=== PATIENT | male | born 1950 | race Caucasian/White ===

== ENCOUNTER → 2016-11-15 | Outpatient (REF) | payer MEDICARE, BC, OTHER ==
[2016-11-15 13:45] LABS: BASO % 0.6 % (0.0-1.0); EOS % 0.2 % (0.0-3.0); LARGE UNSTAINED CELL # 0.1 K/mm3 (0.0-0.4); LARGE UNSTAINED CELL % 2.3 % (0.0-4.0); LYMPH # 1.1 K/mm3 (1.5-4.5); LYMPH % 20.2 % (24.0-44.0); MEAN CORPUSCULAR HEMOGLOBIN 30.9 pg (27.0-33.0); MEAN CORPUSCULAR HGB CONC 33.9 g/dl (32.0-36.5); MEAN CORPUSCULAR VOLUME 91.2 fl (80.0-96.0); MONO # 0.4 K/mm3 (0.0-0.8); MONO % 8.9 % (0.0-5.0); NEUTROPHILS # 3.4 K/mm3 (1.8-7.7); NEUTROPHILS % 67.8 % (36.0-66.0); PLATELET COUNT, AUTOMATED 164 k/mm3 (150-450); RED CELL DISTRIBUTION WIDTH 13.6 % (11.5-14.5)
[2016-11-15 14:35] LABS: VITAMIN B12 LEVEL 503 PG/ML
[2016-11-15 14:36] LABS: FOLATE 18.5 NG/ML
[2016-11-15 14:41] LABS: ALBUMIN 3.7 GM/DL (3.2-5.2); ALKALINE PHOSPHATASE 89 U/L (45-117); ALT/SGPT 37 U/L (12-78); ANION GAP 10 MEQ/L (8-16); AST/SGOT 18 U/L (15-37); BILIRUBIN,TOTAL 0.3 MG/DL (0.2-1.0); BLOOD UREA NITROGEN 13 MG/DL (7-18); CALCIUM LEVEL 8.7 MG/DL (8.8-10.2); CARBON DIOXIDE LEVEL 29 MEQ/L (21-32); CHLORIDE LEVEL 103 MEQ/L (98-107); CHOLESTEROL LEVEL 138 MG/DL (<200); CREATININE FOR GFR 0.91 MG/DL (0.70-1.30); FREE T4 1.01 NG/DL (0.76-1.46); GLOMERULAR FILTRATION RATE > 60.0 (>49); GLUCOSE, FASTING 110 MG/DL (80-110); POTASSIUM SERUM 4.1 MEQ/L (3.5-5.1); SODIUM LEVEL 142 MEQ/L (136-145); TOTAL PROTEIN 7.4 GM/DL (6.4-8.2); TRIGLYCERIDES LEVEL 382 MG/DL (<150)
== END ==
LOC: M SFHCPLAZ 11:02
PROVIDERS: ATTEND Family Medicine
DX: G40.909 Epilepsy, unspecified, not intractable, without status epilepticus (principal); R40.0 Somnolence; E66.09 Other obesity due to excess calories; G62.9 Polyneuropathy, unspecified; R06.2 Wheezing; R03.0 Elevated blood-pressure reading, without diagnosis of hypertension; Z68.38 Body mass index [BMI] 38.0-38.9, adult; J30.89 Other allergic rhinitis; L40.9 Psoriasis, unspecified; Z79.899 Other long term (current) drug therapy
CPT/HCPCS: 36415; 80053; 80061; 82607; 82746; 83036; 84439; 84443; 85025; 94010; G0463

== ENCOUNTER → 2017-08-06 | Outpatient (CLI) | payer MEDICARE, BC, OTHER ==
[2017-08-06 11:29] LABS: BASO % 0.7 % (0.0-1.0); HEMATOCRIT 42.1 % (42.0-52.0); HEMOGLOBIN 13.9 g/dl (13.5-17.5); IMMATURE GRANULOCYTE % 0.2 % (0-3.0); LYMPH % 22.1 % (24.0-44.0); MEAN CORPUSCULAR HEMOGLOBIN 29.8 pg (27.0-33.0); MEAN CORPUSCULAR VOLUME 90.3 fl (80.0-96.0); MONO # 0.6 10^3/uL (0.0-0.8); MONO % 12.6 % (0.0-5.0); NEUTROPHILS # 2.8 10^3/uL (1.8-7.7); NEUTROPHILS % 64.4 % (36.0-66.0); PLATELET COUNT, AUTOMATED 116 10^3/uL (150-450); RED BLOOD COUNT 4.66 10^6/uL (4.30-6.10); RED CELL DISTRIBUTION WIDTH 12.8 % (11.5-14.5); WHITE BLOOD COUNT 4.4 10^3/uL (4.0-10.0)
[2017-08-06 11:58] LABS: ANION GAP 5 MEQ/L (8-16); BLOOD UREA NITROGEN 18 MG/DL (7-18); CALCIUM LEVEL 8.3 MG/DL (8.8-10.2); CARBON DIOXIDE LEVEL 30 MEQ/L (21-32); CHLORIDE LEVEL 106 MEQ/L (98-107); CREATININE FOR GFR 0.95 MG/DL (0.70-1.30); GLOMERULAR FILTRATION RATE > 60.0 (>49); GLUCOSE, FASTING 114 MG/DL (70-100); POTASSIUM SERUM 4.6 MEQ/L (3.5-5.1); SODIUM LEVEL 141 MEQ/L (136-145)
[2017-08-06 22:03] LABS: ESTIMATED AVERAGE GLUCOSE 114 MG/DL (60-110); HEMOGLOBIN A1c 5.6 %
== END ==
LOC: M LAB 10:36
DX: I10 Essential (primary) hypertension (principal); R73.03 Prediabetes; R00.0 Tachycardia, unspecified
CPT/HCPCS: 83036

== ENCOUNTER 2017-09-05 11:25 | Inpatient (IN) | payer MEDICARE, BC, OTHER ==
[2017-09-05] MEDS: ACETAMINOPHEN TAB 650MG DOSE (2X325MG) PO (11:58)
[2017-09-05 12:23] LABS: ALBUMIN 2.9 GM/DL (3.2-5.2); ALBUMIN/GLOBULIN RATIO 0.73 (1.00-1.93); ALKALINE PHOSPHATASE 85 U/L (45-117); ALT/SGPT 105 U/L (12-78); ANION GAP 8 MEQ/L (8-16); AST/SGOT 47 U/L (7-37); BILIRUBIN,DIRECT 0.2 MG/DL (0.0-0.2); BILIRUBIN,TOTAL 0.6 MG/DL (0.2-1.0); BLOOD UREA NITROGEN 19 MG/DL (7-18); CALCIUM LEVEL 7.9 MG/DL (8.8-10.2); CARBON DIOXIDE LEVEL 25 MEQ/L (21-32); CHLORIDE LEVEL 104 MEQ/L (98-107); CPK CREATINE PHOSPHOKINASE 112 U/L (39-308); CREATININE FOR GFR 1.18 MG/DL (0.70-1.30); GLOMERULAR FILTRATION RATE > 60.0 (>49); GLUCOSE, FASTING 198 MG/DL (70-100); LIPASE 206 U/L (73-393); POTASSIUM SERUM 5.1 MEQ/L (3.5-5.1); SODIUM LEVEL 137 MEQ/L (136-145); TOTAL PROTEIN 6.9 GM/DL (6.4-8.2); TROPONIN I 0.02 NG/ML (< 0.10)
[2017-09-05 12:28] LABS: MB/CK RELATIVE INDEX 1.78 (< OR =4); THYROID STIMULATING HORMONE 0.764 uIU/ML (0.358-3.740)
[2017-09-05 12:33] LABS: LACTIC ACID SEPSIS PROTOCOL 2.8 MMOL/L (0.4-2.0)
[2017-09-05 12:47] LABS: BASO % 0.2 % (0.0-1.0); HEMATOCRIT 35.3 % (42.0-52.0); HEMOGLOBIN 12.1 g/dl (13.5-17.5); IMMATURE GRANULOCYTE % 0.6 % (0-3.0); LYMPH # 0.4 10^3/uL (1.5-4.5); LYMPH % 3.3 % (24.0-44.0); MEAN CORPUSCULAR HEMOGLOBIN 31.4 pg (27.0-33.0); MEAN CORPUSCULAR HGB CONC 34.3 g/dl (32.0-36.5); MEAN CORPUSCULAR VOLUME 91.7 fl (80.0-96.0); MONO % 7.6 % (0.0-5.0); NEUTROPHILS # 11.7 10^3/uL (1.8-7.7); NEUTROPHILS % 88.3 % (36.0-66.0); PLATELET COUNT, AUTOMATED 165 10^3/uL (150-450); RED BLOOD COUNT 3.85 10^6/uL (4.30-6.10); WHITE BLOOD COUNT 13.2 10^3/uL (4.0-10.0)
[2017-09-05] MEDS: NS IV (13:53)
[2017-09-05] MEDS: DILUENT IV (13:53)
[2017-09-05] MEDS: CEFEPIME HCL 2 GM in D5W MINI-BAG PLUS 50 ML IV (13:54)
[2017-09-05] MEDS ORDERED: ISOVUE-370 76% 100ML VIAL (Q9967) As Ordered (13:55)
[2017-09-05 15:36] LABS: KETONE, URINE AUTO RFX NEGATIVE (NEGATIVE); MUCUS, URINE RFX SMALL (NEGATIVE); RBC, URINE AUTO RFX 3 /HPF (0-3); SPECIFIC GRAVITY UR AUTO RFX 1.036 (1.002-1.035); SQUAM EPITHELIAL CELL UR AURFX 0 /HPF (0-6)
[2017-09-05 15:43] LABS: PHENYTOIN (DILANTIN) 3.3 UG/ML (10.0-20.0)
[2017-09-05 15:48] LABS: LEUKOCYTE ESTERASE UR AUTO RFX TRACE (NEGATIVE); NITRITE, URINE AUTO RFX POSITIVE (NEGATIVE); WBC, URINE AUTO RFX 12 /HPF (0-3)
[2017-09-05] MEDS: PHENYTOIN ER 100 MG CAP PO ×2 (16:00→21:30)
[2017-09-05] MEDS ORDERED: ONDANSETRON 4MG/2ML VIAL (J2405) IV (16:00)
[2017-09-05 16:02] LABS: INFLUENZA A AMPLIFICATION NEGATIVE (NEGATIVE); INFLUENZA B AMPLIFICATION NEGATIVE (NEGATIVE)
[2017-09-05 16:17] LABS: MAGNESIUM LEVEL 1.5 MG/DL (1.8-2.4)
[2017-09-05] MEDS: NS 1,000 ML IV (16:30)
[2017-09-05] MEDS: SODIUM CHLORIDE 0.9% 1000 ML IV (17:00)
[2017-09-05 17:27] LABS: HIV SCREEN CENTAUR SOURCE NEGATIVE (NEGATIVE)
[2017-09-05] MEDS: ACETAMINOPHEN 325 MG TAB PO (21:31)
[2017-09-05] MEDS: cefTRIAXone SOD 1 GM in D5W MINI-BAG PLUS 50 ML IV (22:14)
[2017-09-06] MEDS: NS 1,000 ML IV ×4 (00:17→22:15)
[2017-09-06] MEDS ORDERED: CEFEPIME HCL 2 GM in D5W MINI-BAG PLUS 50 ML IV (02:00)
[2017-09-06] MEDS: ACETAMINOPHEN 325 MG TAB PO (04:09)
[2017-09-06] MEDS ORDERED: METAL LOCK LOOP XX (05:36)
[2017-09-06 07:15] LABS: BASO % 0.2 % (0.0-1.0); HEMATOCRIT 31.3 % (42.0-52.0); HEMOGLOBIN 10.5 g/dl (13.5-17.5); IMMATURE GRANULOCYTE % 0.5 % (0-3.0); LYMPH # 0.6 10^3/uL (1.5-4.5); LYMPH % 6.2 % (24.0-44.0); MEAN CORPUSCULAR HEMOGLOBIN 30.6 pg (27.0-33.0); MEAN CORPUSCULAR VOLUME 91.3 fl (80.0-96.0); MONO # 0.9 10^3/uL (0.0-0.8); MONO % 9.1 % (0.0-5.0); NEUTROPHILS # 8.6 10^3/uL (1.8-7.7); PLATELET COUNT, AUTOMATED 144 10^3/uL (150-450); RED BLOOD COUNT 3.43 10^6/uL (4.30-6.10); WHITE BLOOD COUNT 10.3 10^3/uL (4.0-10.0)
[2017-09-06 07:16] LABS: MEAN CORPUSCULAR HGB CONC 33.5 g/dl (32.0-36.5)
[2017-09-06 07:20] LABS: ALBUMIN 2.5 GM/DL (3.2-5.2); ALBUMIN/GLOBULIN RATIO 0.63 (1.00-1.93); ALKALINE PHOSPHATASE 72 U/L (45-117); ALT/SGPT 69 U/L (12-78); ANION GAP 7 MEQ/L (8-16); AST/SGOT 29 U/L (7-37); BILIRUBIN,TOTAL 0.4 MG/DL (0.2-1.0); BLOOD UREA NITROGEN 14 MG/DL (7-18); CALCIUM LEVEL 7.6 MG/DL (8.8-10.2); CARBON DIOXIDE LEVEL 26 MEQ/L (21-32); CHLORIDE LEVEL 107 MEQ/L (98-107); GLOMERULAR FILTRATION RATE > 60.0 (>49); GLUCOSE, FASTING 131 MG/DL (70-100); POTASSIUM SERUM 3.7 MEQ/L (3.5-5.1); SODIUM LEVEL 140 MEQ/L (136-145); TOTAL PROTEIN 6.5 GM/DL (6.4-8.2)
[2017-09-06] MEDS: PANTOPRAZOLE 40MG TAB (PROTONIX) PO (07:54)
[2017-09-06] MEDS: PHENYTOIN ER 100 MG CAP PO ×3 (07:54→22:22)
[2017-09-06] MEDS: ENOXAPARIN 40 MG/0.4 ML SYRINGE (J1650) SC (07:55)
[2017-09-06] MEDS ORDERED: PROHANCE 279.3MG/ML 5ML VIAL (A9576) As Ordered (11:38)
[2017-09-06] MEDS ORDERED: PROHANCE 279.3MG/ML 15ML VIAL (A9576) As Ordered (11:38)
[2017-09-06] MEDS: cefTRIAXone SOD 1 GM in D5W MINI-BAG PLUS 50 ML IV (22:23)
[2017-09-07] MEDS: NS 1,000 ML IV (04:07)
[2017-09-07 06:41] LABS: ALBUMIN 2.6 GM/DL (3.2-5.2); ALKALINE PHOSPHATASE 75 U/L (45-117); ALT/SGPT 85 U/L (12-78); ANION GAP 7 MEQ/L (8-16); AST/SGOT 44 U/L (7-37); BILIRUBIN,TOTAL 0.3 MG/DL (0.2-1.0); BLOOD UREA NITROGEN 11 MG/DL (7-18); CALCIUM LEVEL 7.9 MG/DL (8.8-10.2); CARBON DIOXIDE LEVEL 27 MEQ/L (21-32); CHLORIDE LEVEL 108 MEQ/L (98-107); CREATININE FOR GFR 0.81 MG/DL (0.70-1.30); GLOMERULAR FILTRATION RATE > 60.0 (>49); GLUCOSE, FASTING 113 MG/DL (70-100); POTASSIUM SERUM 3.8 MEQ/L (3.5-5.1); SODIUM LEVEL 142 MEQ/L (136-145); TOTAL PROTEIN 6.9 GM/DL (6.4-8.2)
[2017-09-07 09:44] LABS: BASO % 0.2 % (0.0-1.0); HEMATOCRIT 35.4 % (42.0-52.0); IMMATURE GRANULOCYTE % 0.4 % (0-3.0); LYMPH # 0.7 10^3/uL (1.5-4.5); MEAN CORPUSCULAR HEMOGLOBIN 31.8 pg (27.0-33.0); MEAN CORPUSCULAR HGB CONC 33.9 g/dl (32.0-36.5); MEAN CORPUSCULAR VOLUME 93.9 fl (80.0-96.0); MONO # 0.7 10^3/uL (0.0-0.8); MONO % 7.8 % (0.0-5.0); NEUTROPHILS # 7.1 10^3/uL (1.8-7.7); NEUTROPHILS % 83.6 % (36.0-66.0); PLATELET COUNT, AUTOMATED 155 10^3/uL (150-450); RED BLOOD COUNT 3.77 10^6/uL (4.30-6.10); RED CELL DISTRIBUTION WIDTH 13.1 % (11.5-14.5); WHITE BLOOD COUNT 8.5 10^3/uL (4.0-10.0)
[2017-09-07] MEDS: ENOXAPARIN 40 MG/0.4 ML SYRINGE (J1650) SC (09:49)
[2017-09-07] MEDS: PANTOPRAZOLE 40MG TAB (PROTONIX) PO (09:49)
[2017-09-07] MEDS: PREVNAR 13 VACCINE SYRINGE (CPT CODE:90670) IM (09:49)
[2017-09-07] MEDS: PHENYTOIN ER 100 MG CAP PO ×3 (09:50→20:38)
[2017-09-07 10:35] LABS: HEPATITIS B SURFACE ANTIGEN NEGATIVE (NEGATIVE)
[2017-09-08 06:39] LABS: ALBUMIN 2.7 GM/DL (3.2-5.2); ALKALINE PHOSPHATASE 84 U/L (45-117); ALT/SGPT 103 U/L (12-78); ANION GAP 6 MEQ/L (8-16); AST/SGOT 53 U/L (7-37); BILIRUBIN,TOTAL 0.3 MG/DL (0.2-1.0); BLOOD UREA NITROGEN 12 MG/DL (7-18); CALCIUM LEVEL 8.2 MG/DL (8.8-10.2); CARBON DIOXIDE LEVEL 27 MEQ/L (21-32); CHLORIDE LEVEL 110 MEQ/L (98-107); CREATININE FOR GFR 0.83 MG/DL (0.70-1.30); GLOMERULAR FILTRATION RATE > 60.0 (>49); GLUCOSE, FASTING 135 MG/DL (70-100); SODIUM LEVEL 143 MEQ/L (136-145); TOTAL PROTEIN 7.2 GM/DL (6.4-8.2)
[2017-09-08 06:53] LABS: BASO % 0.1 % (0.0-1.0); HEMATOCRIT 33.1 % (42.0-52.0); HEMOGLOBIN 11.1 g/dl (13.5-17.5); IMMATURE GRANULOCYTE % 0.4 % (0-3.0); LYMPH # 0.7 10^3/uL (1.5-4.5); LYMPH % 10.5 % (24.0-44.0); MEAN CORPUSCULAR HEMOGLOBIN 30.7 pg (27.0-33.0); MEAN CORPUSCULAR HGB CONC 33.5 g/dl (32.0-36.5); MEAN CORPUSCULAR VOLUME 91.4 fl (80.0-96.0); MONO # 0.6 10^3/uL (0.0-0.8); MONO % 8.8 % (0.0-5.0); NEUTROPHILS # 5.5 10^3/uL (1.8-7.7); NEUTROPHILS % 80.2 % (36.0-66.0); PLATELET COUNT, AUTOMATED 161 10^3/uL (150-450); RED BLOOD COUNT 3.62 10^6/uL (4.30-6.10); RED CELL DISTRIBUTION WIDTH 12.9 % (11.5-14.5); WHITE BLOOD COUNT 6.8 10^3/uL (4.0-10.0)
[2017-09-08] MEDS: PANTOPRAZOLE 40MG TAB (PROTONIX) PO (09:33)
[2017-09-08] MEDS: ENOXAPARIN 40 MG/0.4 ML SYRINGE (J1650) SC (09:33)
[2017-09-08] MEDS: PHENYTOIN ER 100 MG CAP PO (09:33)
== END 2017-09-08 10:31 | disposition home or self-care (01) | DRG 872 ==
LOC: M MSPAV 09-06 14:52 → M ED 11:25 → M ED INP 16:04
DX: A41.89 Other specified sepsis (principal); E87.2 Acidosis; I10 Essential (primary) hypertension; R65.20 Severe sepsis without septic shock; R73.03 Prediabetes; G40.909 Epilepsy, unspecified, not intractable, without status epilepticus; B97.89 Other viral agents as the cause of diseases classified elsewhere; K21.9 Gastro-esophageal reflux disease without esophagitis; E66.9 Obesity, unspecified; R11.2 Nausea with vomiting, unspecified; E86.0 Dehydration; M35.01 Sjogren syndrome with keratoconjunctivitis; L40.0 Psoriasis vulgaris; Z79.899 Other long term (current) drug therapy; Z87.891 Personal history of nicotine dependence; Z68.36 Body mass index [BMI] 36.0-36.9, adult

== ENCOUNTER → 2017-11-07 | Outpatient (CLI) | payer MEDICARE, BC, OTHER ==
[2017-11-07 10:39] LABS: ALBUMIN 3.5 GM/DL (3.2-5.2); ALBUMIN/GLOBULIN RATIO 0.92 (1.00-1.93); ALKALINE PHOSPHATASE 97 U/L (45-117); ALT/SGPT 28 U/L (12-78); AST/SGOT 18 U/L (7-37); BILIRUBIN,DIRECT 0.1 MG/DL (0.0-0.2); BILIRUBIN,TOTAL 0.4 MG/DL (0.2-1.0); PREALBUMIN 34.8 MG/DL (20.0-40.0); TOTAL PROTEIN 7.3 GM/DL (6.4-8.2)
[2017-11-07 10:50] LABS: PROTHROMBIN TIME 14.3 SECONDS (12.1-14.4)
== END ==
LOC: M LAB 09:50
DX: E88.09 Other disorders of plasma-protein metabolism, not elsewhere classified (principal)
CPT/HCPCS: 80076

== ENCOUNTER → 2017-12-07 | Outpatient (CLI) | payer MEDICARE, BC, OTHER ==
[2017-12-07 12:18] LABS: VITAMIN B12 LEVEL 304 PG/ML (247-911)
[2017-12-07 14:50] LABS: ESTIMATED AVERAGE GLUCOSE 128 MG/DL (60-110); HEMOGLOBIN A1c 6.1 %
[2017-12-07 21:15] LABS: ANION GAP 8 MEQ/L (8-16); BLOOD UREA NITROGEN 18 MG/DL (7-18); CALCIUM LEVEL 8.4 MG/DL (8.8-10.2); CARBON DIOXIDE LEVEL 28 MEQ/L (21-32); CHLORIDE LEVEL 106 MEQ/L (98-107); CHOLESTEROL LEVEL 115 MG/DL (<200); CHOLESTEROL RISK RATIO 3.194 (<5); CREATININE FOR GFR 0.99 MG/DL (0.70-1.30); FREE T4 0.82 NG/DL (0.76-1.46); GLOMERULAR FILTRATION RATE > 60.0 (>49); GLUCOSE, FASTING 132 MG/DL (70-100); HDL CHOLESTEROL 36 MG/DL (>40); LDL CHOLESTEROL 29.4 MG/DL (<100); NON-HDL-C 79 MG/DL; NT-PRO BNP 41 PG/ML (<125); POTASSIUM SERUM 4.4 MEQ/L (3.5-5.1); SODIUM LEVEL 142 MEQ/L (136-145); TRIGLYCERIDES LEVEL 248 MG/DL (<150)
== END ==
LOC: M SMT 09:36
DX: R00.0 Tachycardia, unspecified (principal); G62.9 Polyneuropathy, unspecified; Z13.1 Encounter for screening for diabetes mellitus; Z13.220 Encounter for screening for lipoid disorders; I10 Essential (primary) hypertension; Z79.899 Other long term (current) drug therapy
CPT/HCPCS: 84443

== ENCOUNTER 2018-06-12 08:23 | Day surgery (SDC) | payer MEDICARE, BC, OTHER ==
[~2018-06-12] VITALS: Ht 182.9 cm; Wt 134.3 kg
[~2018-06-12 08:23] MED LIST: ACETAMINOPHEN 325 MG TAB PO PRN; BSS with VANC/TOB/EPI for EYE CASES IR ONE; CELE1CAP9 PO; CYCLOPENTOLATE 2% OPHTH SOLN 2ML BTL OD ONE; HEALON DUET PRO(HEALON 10MG/ML 0.55ML & HEALON ENDOCOAT 30MG/ML 0.85ML) As Ordered ONE; LIDOCAINE 1% SDV 5 ML VIAL As Ordered ONE; LIDOCAINE 3.5 % 1ML OPHTH TOPICAL GEL OU ONE; LOSA50TA88 PO; MIDAZOLAM INJ 2 MG/2 ML VIAL (J2250) As Ordered ONE; MOXIFLOXACIN IN BSS 0.25MG/0.25ML INTRACAMERAL INJ (OR EYE ONLY)(J2280) As Ordered ONE; OFLOXACIN 0.3 % (OCUFLOX) OPTH SOL 5ML OD ONE; PANT40TA3 PO; PHEN-491 PO; PHEN100C PO; PHENYLEPHRINE 2.5% OPHTH SOL 2ML OD ONE; PHENYLEPHRINE HCL 10 % OPHTH. SOL 5ML OD PRN; POVIDONE-IODINE 5% OPHTH PREP SOL 30ML As Ordered ONE; PROAAER10 INH; TRIAMCINOLONE PRES FR 40 MG/ML 1ML(TRIESENCE)(OR EYE ONLY)(J3300 PER 1MG) As Ordered ONE; TROPICAMIDE 1% OPHTH SOLN 2ML OD ONE; TYLE325T5 PO; [UNRECOGNIZED DRUG - OTHER] TOP; fentaNYL 100 MCG/2 ML INJECTION (J3010) As Ordered ONE
[2018-06-12] MEDS ORDERED: PROPOFOL 200 MG/20 ML VIAL As Ordered ONE (11:28)
[2018-06-12] MEDS ORDERED: TRYPAN BLUE 0.06 % 2.25 ML OPHTH SYR (VISIONBLUE) As Ordered ONE ×2 (11:30→11:33)
[2018-06-12] MEDS ORDERED: AcetaZOLAMIDE 500 MG ER CAP PO ONE (12:15)
[2018-06-12] MEDS ORDERED: TRIMETHOBENZAMIDE 300 MG CAP PO PRN (12:15)
[2018-06-12 12:25] VITALS: BP 121/75
== END 2018-06-12 12:43 | disposition home or self-care (01) ==
LOC: M SDC 08:23
PROVIDERS: ATTEND Ophthalmology
DX: H26.9 Unspecified cataract (principal); I10 Essential (primary) hypertension; K21.9 Gastro-esophageal reflux disease without esophagitis; R06.02 Shortness of breath; L40.9 Psoriasis, unspecified; R56.9 Unspecified convulsions; N40.0 Benign prostatic hyperplasia without lower urinary tract symptoms; M15.0 Primary generalized (osteo)arthritis; Z79.899 Other long term (current) drug therapy; Z87.891 Personal history of nicotine dependence; Z98.42 Cataract extraction status, left eye
CPT/HCPCS: 66984; J2250; J2280; J3010; J3300; V2632

== ENCOUNTER → 2018-09-30 | Outpatient (CLI) | payer MEDICARE, BC, OTHER ==
[~2018-09-30] MED LIST changes: -ACETAMINOPHEN 325 MG TAB PO PRN; -BSS with VANC/TOB/EPI for EYE CASES IR ONE; -CYCLOPENTOLATE 2% OPHTH SOLN 2ML BTL OD ONE; -HEALON DUET PRO(HEALON 10MG/ML 0.55ML & HEALON ENDOCOAT 30MG/ML 0.85ML) As Ordered ONE; -LIDOCAINE 1% SDV 5 ML VIAL As Ordered ONE; -LIDOCAINE 3.5 % 1ML OPHTH TOPICAL GEL OU ONE; -MIDAZOLAM INJ 2 MG/2 ML VIAL (J2250) As Ordered ONE; -MOXIFLOXACIN IN BSS 0.25MG/0.25ML INTRACAMERAL INJ (OR EYE ONLY)(J2280) As Ordered ONE; -OFLOXACIN 0.3 % (OCUFLOX) OPTH SOL 5ML OD ONE; -PHENYLEPHRINE 2.5% OPHTH SOL 2ML OD ONE; -PHENYLEPHRINE HCL 10 % OPHTH. SOL 5ML OD PRN; -POVIDONE-IODINE 5% OPHTH PREP SOL 30ML As Ordered ONE; -TRIAMCINOLONE PRES FR 40 MG/ML 1ML(TRIESENCE)(OR EYE ONLY)(J3300 PER 1MG) As Ordered ONE; -TROPICAMIDE 1% OPHTH SOLN 2ML OD ONE; -fentaNYL 100 MCG/2 ML INJECTION (J3010) As Ordered ONE
[2018-09-30 11:32] LABS: HEMOGLOBIN A1c 6.4 %
[2018-09-30 11:53] LABS: BLOOD UREA NITROGEN 20 MG/DL (7-18); CARBON DIOXIDE LEVEL 30 MEQ/L (21-32); CHLORIDE LEVEL 106 MEQ/L (98-107); GLOMERULAR FILTRATION RATE > 60.0 (>42); GLUCOSE, FASTING 119 MG/DL (70-100); POTASSIUM SERUM 4.4 MEQ/L (3.5-5.1); SODIUM LEVEL 142 MEQ/L (136-145)
[2018-09-30 11:54] LABS: VITAMIN B12 LEVEL 281 PG/ML (247-911)
== END ==
LOC: M LAB 09:52
PROVIDERS: ATTEND Family Medicine
DX: E11.9 Type 2 diabetes mellitus without complications (principal); G62.9 Polyneuropathy, unspecified

== ENCOUNTER → 2018-10-01 | Outpatient (REF) | payer MEDICARE, OTHER ==
[2018-10-01 14:06] LABS: MALB URINE SIEMENS 53.2 MG/L; MAU/CREAT RATIO 34.1 MCG/MG (0.0-30.0)
== END ==
LOC: M SFHCPLAZ 12:39
PROVIDERS: ATTEND Family Medicine
DX: E11.9 Type 2 diabetes mellitus without complications (principal); G62.9 Polyneuropathy, unspecified

== ENCOUNTER 2018-11-19 13:54 | Inpatient (IN) | payer MEDICARE, OTHER ==
[~2018-11-19] VITALS: Ht 182.9 cm; Wt 126.5 kg
[~2018-11-19 13:54] MED LIST changes: -ACET1TAB55 PO; -BAYE325T12 PO; -METF500T13 PO; -OMEG10002 PO; -PHEN16.2 PO; -PRAV10TA4 PO; -fish oil
[2018-11-19] MEDS ORDERED: PRAV10TA4 PO (14:03)
[2018-11-19] MEDS ORDERED: METF500T13 PO (14:03)
[2018-11-19] MEDS ORDERED: fish oil (14:04)
[2018-11-19] MEDS ORDERED: NS 1,000 ML IV SCH (14:22)
[2018-11-19] MEDS ORDERED: methylPREDNISolone INJ 125 MG/2 ML VIAL (J2930) IV ONE (14:30)
[2018-11-19] MEDS: IPRATROPIUM 0.5MG/ALBUTEROL 2.5MG INH SOL UD 3ML (DUONEB)(J7620) NEB PRN ×3 (14:34→15:05)
[2018-11-19 14:36] LABS: BASO % 0.3 % (0.0-1.0); HEMATOCRIT 42.4 % (42.0-52.0); HEMOGLOBIN 13.8 g/dl (13.5-17.5); LYMPH # 0.7 10^3/uL (1.5-4.5); LYMPH % 9.8 % (24.0-44.0); MEAN CORPUSCULAR HEMOGLOBIN 31.1 pg (27.0-33.0); MEAN CORPUSCULAR HGB CONC 32.5 g/dl (32.0-36.5); MEAN CORPUSCULAR VOLUME 95.5 fl (80.0-96.0); MONO # 0.8 10^3/uL (0.0-0.8); MONO % 11.8 % (0.0-5.0); NEUTROPHILS # 5.2 10^3/uL (1.8-7.7); NEUTROPHILS % 77.8 % (36.0-66.0); PLATELET COUNT, AUTOMATED 134 10^3/uL (150-450); RED BLOOD COUNT 4.44 10^6/uL (4.30-6.10); WHITE BLOOD COUNT 6.7 10^3/uL (4.0-10.0)
[2018-11-19 15:04] LABS: ALBUMIN 3.5 GM/DL (3.2-5.2); ALT/SGPT 69 U/L (12-78); BILIRUBIN,DIRECT 0.3 MG/DL (0.0-0.2); BILIRUBIN,TOTAL 0.5 MG/DL (0.2-1.0); BLOOD UREA NITROGEN 16 MG/DL (7-18); CALCIUM LEVEL 8.4 MG/DL (8.8-10.2); CARBON DIOXIDE LEVEL 30 MEQ/L (21-32); CHLORIDE LEVEL 104 MEQ/L (98-107); CK-MB VALUE MASS 4.3 NG/ML (<3.6); CPK CREATINE PHOSPHOKINASE 187 U/L (39-308); CREATININE FOR GFR 1.04 MG/DL (0.70-1.30); GLOMERULAR FILTRATION RATE > 60.0 (>42); GLUCOSE, FASTING 132 MG/DL (70-100); NT-PRO BNP 75 PG/ML (<125); POTASSIUM SERUM 4.3 MEQ/L (3.5-5.1); SODIUM LEVEL 140 MEQ/L (136-145); TOTAL PROTEIN 7.7 GM/DL (6.4-8.2); TROPONIN I < 0.02 NG/ML (< 0.10)
[2018-11-19 15:32] LABS: VENOUS BASE EXCESS 1.6 (-2.0-2.0); VENOUS HCO3 28.1 MEQ/L (23.0-27.0); VENOUS O2 SATURATION 80.1 % (60.0-80.0); VENOUS PARTIAL PRESSURE CO2 51.7 mmHg (38.0-50.0); VENOUS PARTIAL PRESSURE O2 45.5 mmHg (30.0-50.0); VENOUS PH 7.353 UNITS (7.330-7.430); VENOUS STANDARD HCO3 25.4 MEQ/L; VENOUS TOTAL CO2 29.7 MEQ/L (24.0-28.0)
[2018-11-19] MEDS ORDERED: ISOVUE-370 76% 100ML VIAL (Q9967) As Ordered ONE (15:59)
[2018-11-19] MEDS ORDERED: IPRATROPIUM 0.5MG/ALBUTEROL 2.5MG INH SOL UD 3ML (DUONEB)(J7620) NEB ONE (16:30)
[2018-11-19] MEDS ORDERED: AZITHROMYCIN INJ 500 MG, VIAL MATE ADAPTER 1 EACH in D5W 250 ML IV ONE (17:15)
[2018-11-19] MEDS ORDERED: cefTRIAXone SOD 1 GM in D5W MINI-BAG PLUS 50 ML IV ONE (17:15)
--- NOTE | 2018-11-19 17:30 | REP ---
CHEST, TWO VIEWS: Two views of the chest are performed. COMPARISON: 09/05/2017. There is mild chronic interstitial prominence. There is no acute infiltrate. The heart is not significantly enlarged. There is some mild calcification of the thoracic aorta. The mediastinal silhouette is unchanged. There are mild degenerative changes of the spine. IMPRESSION: Mild chronic changes without evidence of acute infiltrate. Electronically Signed by Walt White MD 11/20/2018 10:55 A
[2018-11-19] MEDS ORDERED: PHEN16.2 PO (17:57)
[2018-11-19] MEDS ORDERED: OMEG10002 PO (17:57)
[2018-11-19] MEDS ORDERED: ACET1TAB55 PO (17:59)
[2018-11-19] MEDS ORDERED: BAYE325T12 PO (17:59)
[2018-11-19] MEDS ORDERED: GLUCOSE 4 GM CHEW TABLET PO PRN (18:30)
[2018-11-19] MEDS ORDERED: DEXTROSE 50% 50 ML SYRINGE IV PRN (18:30)
[2018-11-19] MEDS ORDERED: GLUCAGON FOR INJ 1 MG VIAL (J1610) SC PRN (18:30)
--- NOTE | 2018-11-19 19:12 | REP ---
CT ANGIOGRAM CHEST: TECHNIQUE: Axial contrast enhanced images from the thoracic inlet to the upper abdomen using 100 mL Isovue 370 intravenous contrast material with multiplanar reformations. There is no CT evidence of pulmonary embolism. There is no thoracic aortic aneurysm or dissection. Heart is normal in size. There is no pleural or pericardial effusion. There is no evidence of significant mediastinal, hilar, or chest wall lymphadenopathy. There is diffuse bronchiolar wall thickening bilaterally compatible with airway inflammation. Diffuse interstitial infiltrate is seen throughout the left lung. No consolidation is seen. There are degenerative changes of the spine. Cysts are seen in the liver. Spleen appears somewhat enlarged. IMPRESSION: No CT evidence of pulmonary embolism. Diffuse bronchiolar wall thickening compatible with airway inflammation. Diffuse interstitial infiltrate left lung. Electronically Signed by Walt White MD 11/20/2018 10:57 A
[2018-11-19] MEDS ORDERED: PILL CUTTER 1 EACH XX PRN (19:15)
--- NOTE | 2018-11-19 20:01 | ECGEPIP ---
[facility] - ED Test Date: 2018-11-19 Pat Name: AIDEN MEHTA Department: Room: - Gender: Male [employer]: ANA MARIA : 1950 Requested By: ISSA WOODARD Order Number: [id number] Reading MD: Darrell Ferguson Measurements Intervals [place] Rate: 112 P: 56 WV: 151 QRS: 41 QRSD: 76 T: 66 QT: 309 QTc: 423 Interpretive Statements SINUS TACHYCARDIA SIMILAR TO 09/05/17 Electronically Signed on 11-19-2018 20:01:31 EDT by Darrell Ferguson
--- NOTE | 2018-11-19 20:09 | HPEPDOC ---
[facility] Medical History & Physical Date of Admission Nov 19, 2018 Date of Service: Nov 19, 2018 Primary Care Physician: RIGOBERTO BURNS MD Attending Physician: AJAY VALDOVINOS MD History and Physical CHIEF COMPLAINT: Shortness of breath, cough HISTORY OF PRESENT ILLNESS: Enrique Thapa is a 68-year-old male with past medical history of hypertension, diabetes mellitus, seizure disorder, GERD, obesity, Keratoconjunctivitis sicca, plaque psoriasis who presents to the emergency room today with a two-week history of productive cough and progressive shortness of breath. He states that his symptoms started about 2 weeks ago when he felt like he had a cold with runny nose, coughing, sinus headaches. He states his symptoms progressively worsened and his cough became more persistent and productive of sputum that was initially white and has become a brown color. He also states he has become increasingly short of breath. He also admits to decreased appetite over the past 4 days and increased swelling in his legs which has been present and stable over the past few months. He states he did take Tylenol for the headache last night which helped somewhat. He states that over the past few days he has been feeling more fatigued and becoming more short of breath while he is up walking around, trying to do his normal daily routine. He denies any fevers, chills or night sweats. He states he went to urgent care today because his was concerned that his condition was continuing to worsen. PAST MEDICAL HISTORY: 1. Hypertension. 2. Diabetes mellitus. 3. Seizure disorder. 4. GERD. 5. Obesity. 6. Keratoconjunctivitis sicca. 7. Plaque psoriasis PAST SURGICAL HISTORY: 1. Appendectomy 2. 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 Quit 18 years ago ETOH: Denies Illicit drug use: Denies IV drug use: Denies FAMILY HISTORY: Father: at 51 years, pancreatic cancer Mother: at 72 years, cancer ALLERGIES: Please see below. REVIEW OF SYSTEMS: CONSTITUTIONAL: Denies fevers, chills, night sweats, unexpected change in weight. HEENT: Admits to headaches and rhinorrhea. Denies change in vision, change in h earing, ear pain, sore throat, dysphagia. CARDIOVASCULAR: This is shortness of breath and leg swelling. Denies chest pain, palpitations, lightheadedness. RESPIRATORY: Admits to productive cough, dyspnea, wheezing. Denies coughing up blood. GASTROINTESTINAL: Denies nausea/vomiting, abdominal pain, diarrhea, constipation. GENITOURINARY: Denies dysuria, urinary frequency. SKIN: Admits to multiple lesions of psoriasis skin. Denies any changes or new lesions. MUSCULOSKELETAL: Denies joint pains, muscle aches. NEUROLOGICAL: Denies confusion, weakness, change in mental status. PSYCHIATRIC: Denies change in mood or affect. HOME MEDICATIONS: Please see below. PHYSICAL EXAMINATION: VITAL SIGNS: Temperature 99.5, pulse 124, respiratory rate, 22, blood pressure 141/64, pulse oximetry 89 % on 4 L nasal cannula. GENERAL APPEARANCE: Patient appears comfortable lying in bed. Mild respiratory distress without accessory muscle use for breathing HEENT: PERRLA, EOMI, moist mucous membranes. . Ear canals clear with pearly TMs bilaterally without fluid.. No lesions in the mouth, pharynx normal. Mallampati score of 2-3 CARDIOVASCULAR: Rate tachycardic, normal rhythm, normal S1 and normal S2, no murmurs, rubs or gallops. LUNGS: Decreased lung sounds on the left side compared to the right, crackles in bilateral bases, diffuse expiratory wheezing bilaterally. ABDOMEN: Soft, nontender, distended. Bowel sounds present. Umbilical hernia present and reducible. MUSCULOSKELETAL: Full range of motion and strength 5/5 in all 4 extremities. EXTREMITIES: Pulses 2+/4 and radial and posterior tibial arteries. Mild nonpitting edema in bilateral lower extremities. NEUROLOGICAL: Alert and oriented 3 to person, place, time. Cranial nerves III - XII grossly intact. No focal deficits. PSYCHIATRIC: Mood and affect normal. LABORATORY DATA: See below. IMAGING: CXR 11/19: Mild chronic changes without evidence of acute infiltrate. CTA 11/19: No CT evidence of pulmonary embolism. Diffuse bronchiolar wall thicken ing compatible with airway inflammation. Diffuse interstitial infiltrate left lung. EKG: sinus tachycardia MICROBIOLOGY: Please see below. ASSESSMENT: Enrique Thapa is a 68-year-old male with past medical history of hypertension, diabetes mellitus, seizure disorder, GERD, obesity, Keratoconjunctivitis sicca, plaque psoriasis who presents to the emergency room today with a two-week history of productive cough and progressive shortness of breath , who presents with tachycardia requiring 4 L oxygen nasal cannula to maintain oxygen saturations around 90%, admitted for acute respiratory hypoxia, likely due to pneumonia. PLAN: 1. Acute respiratory hypoxia, likely secondary to pneumonia - Unsure if atypical versus bacterial - White blood cell count was normal at 6.7, lactic acid was normal at 1.2, will check pro-calcitonin - CXR did not show acute pulmonary process. CTA did show diffuse left lung infiltrates. Will check high resolution CT for better visualization of likely pneumonia - Blood cultures 2 pending. We'll obtain sputum sample for culture. Will check urine for Legionella antigen and strep pneumo antigen. - Patient has a history of multiple rheumatological issues including his plaque psoriasis and Keratoconjunctivitis sicca, in addition to the finding of diffuse bronchial thickening on the CTA, will check an SARAH and anti-CCP levels for possible rheumatologic pulmonary process. -Ordered Mucinex, chest PT, Acapella to help break up mucus. Inspiratory spirometry to help with lung expansion Will start Solu-Medrol 60 mg every 6 hours Continue with IV azithromycin (day #1) and IV ceftriaxone (day #1) 2. Rule out PE - Patient presented with symptoms concerning for PE - D-dimer was elevated at 2529.3 - CTA was negative for pulmonary embolism, making this diagnosis unlikely 3. History of smoking - No official COPD diagnosis. He does have an albuterol inhaler at home for shortness of breath - He does have diffuse wheezing suggestive of possible COPD exacerbation. will do duo nebs prn, Solu-Medrol 60 mg every 6 hours - Titrate oxygen to maintain saturation of 88%, will wean oxygen when his respiratory function improves 4. Hypertension -Continue home losartan 5. History of seizures. -Continue home phenytoin and phenobarbital. Consider checking phenytoin levels tomorrow 6. GERD. Continue with home PPI 7. Diabetes mellitus. -Hold home metformin, will start sliding scale insulin while inpatient 8. Plaque psoriasis. -His lesions do not appear infected, we'll continue to monitor. He is not currently on any medication for this 9. Keratoconjunctivitis sicca. -Continue home fish oil supplement 10. DVT prophylaxis - Lovenox Vital Signs Vital Signs Date Time Temp Pulse Resp B/P (MAP) Pulse Ox O2 Delivery O2 Flow Rate FiO2 11/19/18 18:31 128 176/99 (124) 92 Nasal Cannula 4.0 11/19/18 15:05 16 11/19/18 13:55 99.5 Laboratory Data Labs 24H Laboratory Tests 2 11/19/18 14:20: Immature Granulocyte % (Auto) 0.3, White Blood Count 6.7, Red Blood Count 4.44, Hemoglobin 13.8, Hematocrit 42.4, Mean Corpuscular Volume 95.5, Mean Corpuscular Hemoglobin 31.1, Mean Corpuscular Hemoglobin Concent 32.5, Red Cell Distribution Width 13.2, Platelet Count 134L, Neutrophils (%) (Auto) 77.8H, Lymphocytes (%) (Auto) 9.8L, Monocytes (%) (Auto) 11.8H, Eosinophils (%) (Auto) 0.0, Basophils (%) (Auto) 0.3, Neutrophils # (Auto) 5.2, Lymphocytes # (Auto) 0.7L, Monocytes # (Auto) 0.8, Eosinophils # (Auto) 0.0, Basophils # (Auto) 0.0, Nucleated Red Blood Cells % (auto) 0.0, D-Dimer, Quantitative 2529.31H, Blood Gas Bicarbonate Standard 25.4, Venous Blood pH 7.353, Venous Blood Partial Pressure CO2 51.7H, Venous Blood Partial Pressure O2 45.5, Venous Blood Total Carbon Dioxide 29.7H, Venous Blood HCO3 28.1H, Venous Blood Oxygen Saturation 80.1H, Venous Blood Base Excess 1.6, Anion Gap 6L, Glomerular Filtration Rate > 60.0, Lactic Acid Level 1.2, Calcium Level 8.4L, Aspartate Amino Transf (AST/SGOT) 38H, Alanine Aminotransferase (ALT/SGPT) 69, Alkaline Phosphatase 83, Total Bilirubin 0.5, Direct Bilirubin 0.3H, Total Creatine Kinase 187, Creatine Kinase MB 4.3H, Creatine Kinase MB Relative Index 2.30, Troponin I < 0.02, YI-Pbj-I-Type Na triuretic Peptide 75, Total Protein 7.7, Albumin 3.5, Albumin/Globulin Ratio 0.83L CBC/BMP Laboratory Tests 11/19/18 14:20 Red Blood Count 4.44, Mean Corpuscular Volume 95.5, Mean Corpuscular Hemoglobin 31.1, Mean Corpuscular Hemoglobin Concent 32.5, Red Cell Distribution Width 13.2, Neutrophils (%) (Auto) 77.8 H, Lymphocytes (%) (Auto) 9.8 L, Monocytes (%) (Auto) 11.8 H, Eosinophils (%) (Auto) 0.0, Basophils (%) (Auto) 0.3, Neutrophils # (Auto) 5.2, Lymphocytes # (Auto) 0.7 L, Monocytes # (Auto) 0.8, Eosinophils # (Auto) 0.0, Basophils # (Auto) 0.0 Microbiology Microbiology 11/19/18 Blood Culture, Received Pending 11/19/18 Blood Culture, Received Pending Home Medications Scheduled Acetaminophen (Acetaminophen) 325 Mg Tablet, 650 MG PO QHS Azithromycin (Azithromycin) 500 Mg Tablet, 500 MG PO DAILY Cefdinir (Cefdinir) 300 Mg Capsule, 300 MG PO BID Celecoxib (Celecoxib) 200 Mg Cap, 200 MG PO BID Losartan Potassium (Losartan Potassium) 50 Mg Tab, 50 MG PO DAILY Metformin HCl (Metformin HCl) 500 Mg Tablet, 500 MG PO BID [place]-3/Dha/Epa/Fish Oil (Fish Oil 1,000 mg Softgel) 1 Each Capsule, 1,000 MG PO BID Pantoprazole Sodium (Pantoprazole Sodium) 40 Mg Tab, 40 MG PO DAILY Phenobarbital (Phenobarbital) 16.2 Mg Tablet, 16.2 MG PO TID Phenytoin Sodium Extended (Phenytoin Sodium Extended) 100 Mg Cap, 100 MG PO TID Pravastatin Sodium (Pravastatin Sodium) 10 Mg Tablet, 10 MG PO QPM TAKES AT DINNERTIME Prednisone (Prednisone) 10 Mg Tablet, 10 MG PO TAPER Take 4 tabs daily x 3 days, then 3 tabs daily x 3 days, then 2 tabs daily x 3 days, then 1 tab daily x 3 days and stop [judy guzman] , 1 DOSE TOP QHS APPLY TO FEET Scheduled PRN Albuterol Sulfate (Proair Hfa) 108 Mcg/Act Aer, 2 PUFF INH Q4H PRN for SHORTNESS OF BREATH Allergies Coded Allergies: No Known Allergies (Unverified , 05/31/18) A-FIB/CHADSVASC A-FIB History Current/History of A-Fib/PAF?: No DAIN VALADEZ PGY-1 Nov 19, 2018 20:09
--- NOTE | 2018-11-19 20:40 | IPNPDOC ---
Text Note Date of Service The patient was seen on 11/19/18. NOTE Per d/w cable technician Lisandro Smith they will upgrade the CT chest images from the s can done earlier today to produce high resolution images. They will cancel the scan tonight in order to avoid exposing the patient to excess contrast. If the day time team feels the upgraded images are not adequate they can order a repeat CT scan tomorrow after 4PM. VS,Fishbone, I+O VS, Fishbone, I+O Laboratory Tests 11/19/18 14:20 Red Blood Count 4.44, Mean Corpuscular Volume 95.5, Mean Corpuscular Hemoglobin 31.1, Mean Corpuscular Hemoglobin Concent 32.5, Red Cell Distribution Width 13.2, Neutrophils (%) (Auto) 77.8 H, Lymphocytes (%) (Auto) 9.8 L, Monocytes (%) (Auto) 11.8 H, Eosinophils (%) (Auto) 0.0, Basophils (%) (Auto) 0.3, Neutrophils # (Auto) 5.2, Lymphocytes # (Auto) 0.7 L, Monocytes # (Auto) 0.8, Eosinophils # (Auto) 0.0, Basophils # (Auto) 0.0 Vital Signs Date Time Temp Pulse Resp B/P (MAP) Pulse Ox O2 Delivery O2 Flow Rate FiO2 11/19/18 20:32 119 18 140/76 (97) 93 Room Air 11/19/18 18:31 4.0 11/19/18 13:55 99.5 ROMAIN ROMERO MD Nov 19, 2018 20:40
[2018-11-19 21:00] VITALS: BP 157/74
[2018-11-19] MEDS: HumaLOG INSULIN (NovoLOG) PER UNIT SC SCH (21:00)
--- NOTE | 2018-11-19 21:03 | REPVR ---
EXAM: CT Chest With Contrast EXAM DATE/TIME: 11/19/2018 7:54 PM CLINICAL HISTORY: 68 years old, male; Chest pain; Additional info: Pneumonia/high res CT chest TECHNIQUE: Imaging protocol: Axial computed tomography images of the chest with intravenous contrast. Coronal and sagittal reformatted images were created and reviewed. Radiation optimization: All CT scans at this facility use at least one of these dose optimization techniques: automated exposure control; mA and/or kV adjustment per patient size (includes targeted exams where dose is matched to clinical indication); or iterative reconstruction. Contrast material: ISO 370;Contrast volume: 75 ml;Contrast route: IV; COMPARISON: CT ANGIO CHEST 09/05/2017 2:04 PM FINDINGS: Lungs: Slight interstitial prominence with mild tree in bud infiltrates involving the left lung. Borderline splenomegaly. Pleural space: Unremarkable. No pneumothorax. No pleural effusion. Heart: Unremarkable. No cardiomegaly. No pericardial effusion. Pulmonary arteries: The main pulmonary artery measures 27 mm. Aorta: The ascending thoracic aorta measures 32 mm. Lymph nodes: Unremarkable. No enlarged lymph nodes. Bones/joints: Unremarkable. No acute fracture. Soft tissues: Unremarkable. Liver: The liver attenuation is 45 Hounsfield units and the spleen is 75 Hounsfield units. Multiple hepatic cysts measuring up to 2.7 cm with a Hounsfield measurement of 6. IMPRESSION: 1. Slight interstitial prominence and mild tree in bud infiltrates of the left lung which are new since 09/05/2017. 2. Borderline splenomegaly. Electronically signed by: Krystian Lozano On 11/19/2018 21:03:24 PM
[2018-11-19] MEDS: LOSARTAN 50 MG TAB PO SCH (21:16)
[2018-11-19 21:24] VITALS: O2SAT 92
[2018-11-19] MEDS: guaiFENesin ER 600 MG TAB PO SCH (21:28)
[2018-11-19] MEDS: PHENYTOIN ER 100 MG CAP PO SCH (21:28)
[2018-11-19] MEDS: methylPREDNISolone INJ 125 MG/2 ML VIAL (J2930) IV SCH (21:29)
[2018-11-19] MEDS: ENOXAPARIN 40 MG/0.4 ML SYRINGE (J1650) SC SCH (21:29)
[2018-11-19] MEDS: PHENobarbital 30 MG TAB PO SCH (22:54)
[2018-11-19] MEDS: OMEGA-3 1000MG CAPSULE PO SCH (22:54)
[2018-11-19] MEDS: PRAVASTATIN 10 MG TAB PO SCH (22:54)
[2018-11-19] MEDS: ACETAMINOPHEN TAB 650MG DOSE (2X325MG) PO SCH (22:55)
[2018-11-20] VITALS (7 sets, daily range): BP systolic 109–143; BP diastolic 64–86; O2SAT 93
[2018-11-20] MEDS: methylPREDNISolone INJ 125 MG/2 ML VIAL (J2930) IV SCH ×4 (03:49→21:19)
[2018-11-20 05:20] LABS: HEMATOCRIT 38.9 % (42.0-52.0); HEMOGLOBIN 12.2 g/dl (13.5-17.5); MEAN CORPUSCULAR HEMOGLOBIN 30.6 pg (27.0-33.0); MEAN CORPUSCULAR HGB CONC 31.4 g/dl (32.0-36.5); MEAN CORPUSCULAR VOLUME 97.5 fl (80.0-96.0); PLATELET COUNT, AUTOMATED 122 10^3/uL (150-450); RED BLOOD COUNT 3.99 10^6/uL (4.30-6.10); WHITE BLOOD COUNT 6.5 10^3/uL (4.0-10.0)
[2018-11-20 05:34] LABS: BLOOD UREA NITROGEN 15 MG/DL (7-18); CALCIUM LEVEL 8.3 MG/DL (8.8-10.2); CARBON DIOXIDE LEVEL 31 MEQ/L (21-32); CHLORIDE LEVEL 105 MEQ/L (98-107); CREATININE FOR GFR 0.97 MG/DL (0.70-1.30); GLOMERULAR FILTRATION RATE > 60.0 (>42); GLUCOSE, FASTING 137 MG/DL (70-100); POTASSIUM SERUM 4.7 MEQ/L (3.5-5.1); SODIUM LEVEL 140 MEQ/L (136-145)
[2018-11-20] MEDS: IPRATROPIUM 0.5MG/ALBUTEROL 2.5MG INH SOL UD 3ML (DUONEB)(J7620) NEB SCH ×3 (07:18→20:10)
[2018-11-20] MEDS: HumaLOG INSULIN (NovoLOG) PER UNIT SC SCH ×4 (07:50→21:00)
[2018-11-20] MEDS: PHENYTOIN ER 100 MG CAP PO SCH ×3 (08:37→21:18)
[2018-11-20] MEDS: PHENobarbital 30 MG TAB PO SCH ×3 (08:38→21:18)
[2018-11-20] MEDS: LOSARTAN 50 MG TAB PO SCH (08:38)
[2018-11-20] MEDS: guaiFENesin ER 600 MG TAB PO SCH ×2 (08:38→21:16)
[2018-11-20] MEDS: PANTOPRAZOLE 40MG TAB (PROTONIX) PO SCH (08:38)
[2018-11-20] MEDS: NYSTATIN 100,000 UNITS/GM TOPICAL PWD 15 GM TOP SCH ×2 (12:25→21:20)
[2018-11-20] MEDS: OMEGA-3 1000MG CAPSULE PO SCH ×2 (12:25→21:17)
[2018-11-20] MEDS: BETAMETHASONE VAL 0.1% OINT 15 GM TOP SCH ×2 (12:26→21:21)
--- NOTE | 2018-11-20 13:35 | IPNPDOC ---
Date Seen The patient was seen on 11/20/18. Progress Note SUBJECTIVE: Patient is a 68-year-old male with past medical history of hypertension, diabetes mellitus, seizure disorder, GERD, obesity, Keratoconjunctivitis sicca, plaque psoriasis who presents to the emergency room today with a two-week history of productive cough and progressive shortness of breath. Patient reports he is feeling some improvement in both his shortness of breath and cough this morning. He does continue to cough up sputum which has been a white or brown color, he denies any shellie taste in his mouth. He also states he does not feel as fatigued as he was feeling. He denies any new complaints today He denies any fevers, chills, night sweats, headaches, vision change, chest pain, palpitations, nausea, vomiting, abdominal pain, diarrhea, urinary dysfu nction, increased leg swelling, weakness. OBJECTIVE: PHYSICAL EXAMINATION: VITAL SIGNS: Please see below. GENERAL: Patient appears comfortable lying in bed. No acute respiratory distress. HEENT: PERRLA, EOMI, moist mucous membranes. No lesions in the mouth, pharynx normal. Mallampati score of 2-3 CARDIOVASCULAR: Rate tachycardic, normal rhythm, normal S1 and normal S2, no murmurs, rubs or gallops. LUNGS: Decreased lung sounds on the left side compared to the right, crackles in bilateral bases, diffuse expiratory wheezing bilaterally. , Improved from yesterday ABDOMEN: Soft, nontender, distended. Bowel sounds present. Umbilical hernia present and reducible. EXTREMITIES: Pulses 2+/4 and radial and posterior tibial arteries. Wearing SPENCER stockings, mild nonpitting edema in bilateral lower extremities. NEUROLOGICAL: Alert and oriented 3 to person, place, time. Cranial nerves III - XII grossly intact. No focal deficits. PSYCHIATRIC: Mood and affect normal. LABORATORY DATA, IMAGING STUDIES, MICROBIOLOGY: Please see below. IMAGING: CXR 11/19: Mild chronic changes without evidence of acute infiltrate. CTA 11/19: No CT evidence of pulmonary embolism. Diffuse bronchiolar wall thickening compatible with airway inflammation. Diffuse interstitial infiltrate left lung. EKG: sinus tachycardia ASSESSMENT AND PLAN: 68-year-old male with past medical history of hypertension, diabetes mellitus, seizure disorder, GERD, obesity, Kerato conjunctivitis sicca, plaque psoriasis who presents to the emergency room today with a two-week history of productive cough and progressive shortness of breath, who was admitted for acute respiratory hypoxia, likely secondary to left lung interstitial pneumonia PROBLEMS: 1. Acute respiratory hypoxia, likely secondary to pneumonia - Unsure if atypical versus bacterial - White blood cell count was normal at 6.7, lactic acid was normal at 1.2, procalcitonin level pending - CXR did not show acute pulmonary process. CTA did show diffuse left lung infiltrates. High-resolution CT showed interstitial prominence and mild tree-in-bud infiltrates in the left lung, which are new since September 10 - Blood cultures 2 pending.. Sputum culture pending. Will check urine for Legionella antigen and strep pneumo antigen. - Patient has a history of multiple rheumatological issues including his plaque psoriasis and Keratoconjunctivitis sicca, in addition to the finding of diffuse bronchial thickening on the CTA, will check an SARAH and anti-CCP levels for possible rheumatologic pulmonary process. Anti-CCP and SARAH levels pending -Ordered Mucinex, chest PT, Acapella to help break up mucus. Inspiratory spirometry to help with lung expansion Continuous Solu-Medrol 60 mg every 6 hours Continue with IV azithromycin (day # 2) and IV ceftriaxone (day # 2) He appears to be oxygenating better today than yesterday, we'll begin to wean his oxygen as tolerated to maintain saturations above 88%. 2. Rule out PE - Patient presented with symptoms concerning for PE - D-dimer was elevated at 2529.3 - CTA was negative for pulmonary embolism, making this diagnosis unlikely 3. History of smoking - No official COPD diagnosis. He does have an albuterol inhaler at home for shortness of breath - He does have diffuse wheezing suggestive of possible COPD exacerbation. Will do duonebs scheduled every 6 hours, with additional prn treatments every 2 hours. He is on Solu-Medrol 60 mg every 6 hours - Titrate oxygen to maintain saturation of 88%, he appears to be oxygenating better today. Will begin to wean his oxygen as tolerated 4. Hypertension -Continue home losartan 5. Likely LUL, undiagnosed. Patient refuses to have a sleep study but likely has LUL. He states his PCP has discussed this with him. Patient required high flow oxygen at 5 L nasal cannula overnight. Suspect this is related to undiagnosed LUL. He is oxygenating that her during the day and was able to wean down from 4 L nasal cannula to 2 L nasal cannula 6. History of seizures. -Continue home phenytoin and phenobarbital. Consider checking phenytoin levels 7. GERD. Continue with home PPI 8. Diabetes mellitus. -Hold home metformin, will start sliding scale insulin while inpatient 9. Plaque psoriasis. -His lesions do not appear infected, we'll continue to monitor. He is not currently on any medication for this. Ordered betamethasone cream which can be applied to these areas for symptomatic relief 10. Keratoconjunctivitis sicca. -Continue home fish oil supplement 11. DVT prophylaxis - Lovenox DISPOSITION: Pending clinical improvement VS, I&O, 24H, Fishbone Vital Signs/I&O Vital Signs Date Time Temp Pulse Resp B/P (MAP) Pulse Ox O2 Delivery O2 Flow Rate FiO2 11/20/18 09:00 4.0 11/20/18 08:38 109/64 11/20/18 08:00 97.3 106 20 90 11/19/18 21:24 Nasal Cannula I&O- Last 24 Hours up to 6 AM 11/20/18 06:00 Intake Total 480 ml Output Total 675 ml Balance -195 ml Laboratory Data 24H LABS Laboratory Tests 2 11/19/18 14:20: Immature Granulocyte % (Auto) 0.3, White Blood Count 6.7, Red Blood Count 4.44, Hemoglobin 13.8, Hematocrit 42.4, Mean Corpuscular Volume 95.5, Mean Corpuscular Hemoglobin 31.1, Mean Corpuscular Hemoglobin Concent 32.5, Red Cell Distribution Width 13.2, Platelet Count 134L, Neutrophils (%) (Auto) 77.8H, Lymphocytes (%) (Auto) 9.8L, Monocytes (%) (Auto) 11.8H, Eosinophils (%) (Auto) 0.0, Basophils (%) (Auto) 0.3, Neutrophils # (Auto) 5.2, Lymphocytes # (Auto) 0.7L, Monocytes # (Auto) 0.8, Eosinophils # (Auto) 0.0, Basophils # (Auto) 0.0, Nucleated Red Blood Cells % (auto) 0.0, D-Dimer, Quantitative 2529.31H, Blood Gas Bicarbonate Standard 25.4, Venous Blood pH 7.353, Venous Blood Partial Pressure CO2 51.7H, Venous Blood Partial Pressure O2 45.5, Venous Blood Total Carbon Dioxide 29.7H, Venous Blood HCO3 28.1H, Venous Blood Oxygen Saturation 80.1H, Venous Blood Base Excess 1.6, Anion Gap 6L, Glomerular Filtration Rate > 60.0, Lactic Acid Level 1.2, Calcium Level 8.4L, Aspartate Amino Transf (AST/SGOT) 38H, Alanine Aminotransferase (ALT/SGPT) 69, Alkaline Phosphatase 83, Total Bilirubin 0.5, Direct Bilirubin 0.3H, Total Creatine Kinase 187, Creatine Kinase MB 4.3H, Creatine Kinase MB Relative Index 2.30, Troponin I < 0.02, IU-Cun-J-Type Natriuretic Peptide 75, Total Protein 7.7, Albumin 3.5, Albumin/Globulin Ratio 0.83L 11/19/18 19:49: 11/19/18 21:18: Bedside Glucose (Misc Panel) 158H 11/19/18 22:00: 11/20/18 04:54: Nucleated Red Blood Cells % (auto) 0.0, Anion Gap 4L, Glomerular Filtration Rate > 60.0, Blood Urea Nitrogen 15, Creatinine 0.97, Sodium Level 140, Potassium Level 4.7, Chloride Level 105, Carbon Dioxide Level 31, Calcium Level 8.3L, Magnesium Level 2.0 11/20/18 07:29: Bedside Glucose (Misc Panel) 182H 11/20/18 12:20: Bedside Glucose (Misc Panel) 142H CBC/BMP Laboratory Tests 11/19/18 14:20 Red Blood Count 4.44, Mean Corpuscular Volume 95.5, Mean Corpuscular Hemoglobin 31.1, Mean Corpuscular Hemoglobin Concent 32.5, Red Cell Distribution Width 13.2, Neutrophils (%) (Auto) 77.8 H, Lymphocytes (%) (Auto) 9.8 L, Monocytes (%) (Auto) 11.8 H, Eosinophils (%) (Auto) 0.0, Basophils (%) (Auto) 0.3, Neutrophils # (Auto) 5.2, Lymphocytes # (Auto) 0.7 L, Monocytes # (Auto) 0.8, Eosinophils # (Auto) 0.0, Basophils # (Auto) 0.0 11/20/18 04:54 Red Blood Count 3.99 L, Mean Corpuscular Volume 97.5 H, Mean Corpuscular Hemoglobin 30.6, Mean Corpuscular Hemoglobin Concent 31.4 L, Red Cell Distribution Width 13.1, Calcium Level 8.3 L Microbiology Microbiology 11/19/18 Blood Culture, Received Pending 11/19/18 Blood Culture, Received Pending 11/19/18 Gram Stain - Final, Resulted 11/19/18 Sputum Culture, Resulted Pending DAIN VALADEZ PGY-1 Nov 20, 2018 13:35
[2018-11-20] MEDS: ENOXAPARIN 40 MG/0.4 ML SYRINGE (J1650) SC SCH (17:27)
[2018-11-20] MEDS: cefTRIAXone SOD 1 GM in D5W MINI-BAG PLUS 50 ML IV SCH (17:28)
[2018-11-20] MEDS: AZITHROMYCIN INJ 500 MG, VIAL MATE ADAPTER 1 EACH in D5W 250 ML IV SCH (21:16)
[2018-11-20] MEDS: ACETAMINOPHEN TAB 650MG DOSE (2X325MG) PO SCH (21:17)
[2018-11-20] MEDS: PRAVASTATIN 10 MG TAB PO SCH (21:18)
[2018-11-20] MEDS: IPRATROPIUM 0.5MG/ALBUTEROL 2.5MG INH SOL UD 3ML (DUONEB)(J7620) INH PRN (23:19)
[2018-11-21] VITALS: BP 118/80
[2018-11-21] MEDS: IPRATROPIUM 0.5MG/ALBUTEROL 2.5MG INH SOL UD 3ML (DUONEB)(J7620) NEB SCH ×4 (02:00→20:21)
[2018-11-21 04:00] VITALS: BP 119/63
[2018-11-21] MEDS: methylPREDNISolone INJ 125 MG/2 ML VIAL (J2930) IV SCH ×4 (04:51→21:41)
[2018-11-21 05:06] LABS: HEMATOCRIT 39.9 % (42.0-52.0); HEMOGLOBIN 12.3 g/dl (13.5-17.5); MEAN CORPUSCULAR HEMOGLOBIN 30.2 pg (27.0-33.0); MEAN CORPUSCULAR HGB CONC 30.8 g/dl (32.0-36.5); PLATELET COUNT, AUTOMATED 120 10^3/uL (150-450); RED BLOOD COUNT 4.07 10^6/uL (4.30-6.10); WHITE BLOOD COUNT 7.5 10^3/uL (4.0-10.0)
[2018-11-21 05:25] LABS: BLOOD UREA NITROGEN 17 MG/DL (7-18); CALCIUM LEVEL 8.1 MG/DL (8.8-10.2); CARBON DIOXIDE LEVEL 33 MEQ/L (21-32); CHLORIDE LEVEL 105 MEQ/L (98-107); CREATININE FOR GFR 1.02 MG/DL (0.70-1.30); GLOMERULAR FILTRATION RATE > 60.0 (>42); GLUCOSE, FASTING 152 MG/DL (70-100); POTASSIUM SERUM 4.9 MEQ/L (3.5-5.1); SODIUM LEVEL 141 MEQ/L (136-145)
--- NOTE | 2018-11-21 07:32 | ECHO ---
DATE OF STUDY: 11/20/2018 DATE OF : 1950 AGE: 68 REFERRING PROVIDER: Dr. Carmelina Woodson PATIENT LOCATION: Room 3202 REASON FOR STUDY: Shortness of breath. 2-D MEASUREMENTS: IVS: 1.3 LV: 5.1 LVPW: 1.2 LA: 4.1 Aorta: 3.8 DOPPLER MEASUREMENTS: Peak velocity across the aortic valve: 1.9 m/s Peak velocity across the LVOT: 73 m/s Peak gradient across the aortic valve: 15 mmHg Mean gradient across the aortic valve: 8 mmHg Mitral E: 0.70 Mitral A: 0.97 Ratio: 0.7 Maximum tricuspid valve velocity: 2.0 m/s 2-D COMMENTS: 1. Normal left ventricular size with probably mildly increased left ventricular wall thickness. Left ventricular systolic function is normal, estimated at 60-65%. 2. Mildly enlarged left atrium at 4.1 cm. Normal right atrium and right ventricle. 3. The atrial septum appeared to be normal without evidence of defect or shunt. 4. Mildly dilated aortic root at 3.8 cm. 5. A small pericardial effusion was noted, no evidence of cardiac tamponade. 6. Mildly calcified aortic valve, leaflet excursion appeared to be minimally restricted. Normal mitral valve and tricuspid valve. The pulmonic valve and proximal pulmonary artery branches were not well visualized. 7. The inferior vena cava was not visualized. DOPPLER: Detects trace tricuspid regurgitation. The calculated pulmonary artery systolic pressure was normal. Abnormal relaxation pattern was noted across the mitral valve leaflets as well as the mitral valve annulus consistent with a delayed relaxation. IMPRESSION: 1. Normal global left ventricular systolic function with mild concentric left ventricular hypertrophy. There were some features of left ventricular diastolic dysfunction manifested by abnormal relaxation. 2. Aortic valve sclerosis with trivial aortic stenosis, but no aortic regurgitation. 3. Isolated mildly dilated left atrium without evidence of significant mitral regurgitation. Probably related to underlying left ventricular diastolic dysfunction. 4. Trace tricuspid regurgitation with a normal calculated pulmonary artery systolic pressure. 5. A small pericardial effusion was noted, no evidence of cardiac tamponade. [facility]
[2018-11-21 08:00] VITALS: BP 138/81
[2018-11-21] MEDS: HumaLOG INSULIN (NovoLOG) PER UNIT SC SCH ×4 (08:37→21:00)
[2018-11-21] MEDS: PHENobarbital 30 MG TAB PO SCH ×3 (08:38→21:48)
[2018-11-21] MEDS: PHENYTOIN ER 100 MG CAP PO SCH ×3 (08:39→21:48)
[2018-11-21] MEDS: OMEGA-3 1000MG CAPSULE PO SCH ×2 (08:39→21:48)
[2018-11-21] MEDS: LOSARTAN 50 MG TAB PO SCH (08:41)
[2018-11-21] MEDS: guaiFENesin ER 600 MG TAB PO SCH ×2 (08:41→21:47)
[2018-11-21] MEDS: PANTOPRAZOLE 40MG TAB (PROTONIX) PO SCH (08:41)
[2018-11-21] MEDS: BETAMETHASONE VAL 0.1% OINT 15 GM TOP SCH ×2 (08:42→21:42)
[2018-11-21] MEDS: NYSTATIN 100,000 UNITS/GM TOPICAL PWD 15 GM TOP SCH ×2 (08:42→21:41)
--- NOTE | 2018-11-21 14:32 | IPNPDOC ---
Date Seen The patient was seen on 11/21/18. Progress Note SUBJECTIVE: Patient is a 68-year-old male with past medical history of hypertension, diabetes mellitus, seizure disorder, GERD, obesity, Keratoconjunctivitis sicca, plaque psoriasis who presents to the emergency room today with a two-week history of productive cough and progressive shortness of breath. Patient is seen and examined today in his room. He states he continues to feel some slow improvement in his shortness of breath, cough, and fatigue. He does continue to cough up sputum which has been a white or brown color. . He states the DuoNeb treatments to help him cough up more mucus and improve his congestion in his chest. He denies any new complaints today He denies any fevers, chills, night sweats, headaches, vision change, chest pain, palpitations, nausea, vomiting, abdominal pain, diarrhea, urinary dysfunction, increased leg swelling, weakness. He does continue to require higher levels of supplemental oxygen overnight. OBJECTIVE: PHYSICAL EXAMINATION: VITAL SIGNS: Please see below. GENERAL: Patient appears comfortable lying in bed. No acute respiratory distress. HEENT: PERRLA, EOMI, moist mucous membranes. No lesions in the mouth, pharynx normal. Mallampati score of 2-3 CARDIOVASCULAR: Rate tachycardic, normal rhythm, normal S1 and normal S2, no murmurs, rubs or gallops. LUNGS: Decreased lung sounds on the left side compared to the right, crackles in bilateral bases, diffuse expiratory wheezing bilaterally. , Improved from yesterday ABDOMEN: Soft, nontender, distended. Bowel sounds present. Umbilical hernia present and reducible. EXTREMITIES: Pulses 2+/4 and radial and posterior tibial arteries. Wearing SPENCER stockings, mild nonpitting edema in bilateral lower extremities. NEUROLOGICAL: Alert and oriented 3 to person, place, time. Cranial nerves III - XII grossly intact. No focal deficits. PSYCHIATRIC: Mood and affect normal. LABORATORY DATA, IMAGING STUDIES, MICROBIOLOGY: Please see below. IMAGING: CXR 11/19: Mild chronic changes without evidence of acute infiltrate. CTA 11/19: No CT evidence of pulmonary embolism. Diffuse bronchiolar wall thickening compatible with airway inflammation. Diffuse interstitial infiltrate left lung. EKG: sinus tachycardia ASSESSMENT AND PLAN: 68-year-old male with past medical history of hypertension, diabetes mellitus, seizure disorder, GERD, obesity, Keratoconjunctivitis sicca, plaque psoriasis who presents to the emergency room today with a two-week history of productive cough and progressive shortness of breath, who was admitted for acute respiratory hypoxia, likely secondary to left lung interstitial pneumonia PROBLEMS: 1. Acute respiratory hypoxia, likely secondary to pneumonia - Unsure if atypical versus bacterial - White blood cell count was normal at 6.7 and continues to be stable, lactic acid was normal at 1.2, procalcitonin level 0.3 - CXR did not show acute pulmonary process. CTA did show diffuse left lung in filtrates. High-resolution CT showed interstitial prominence and mild tree-in-bud infiltrates in the left lung, which are new since September 10 - Blood cultures 2 negative at 24 hours Sputum culture positive for yeast-like organism - Will check urine for Legionella antigen and strep pneumo antigen. - Patient has a history of multiple rheumatological issues including his plaque psoriasis and Keratoconjunctivitis sicca, in addition to the finding of diffuse bronchial thickening on the CTA, will check an SARAH and anti-CCP levels for possible rheumatologic pulmonary process. Anti-CCP and SARAH levels pending -Ordered Mucinex, chest PT, Acapella to help break up mucus. Inspiratory spirometry to help with lung expansion Continuous Solu-Medrol 60 mg every 6 hours Continue with IV azithromycin (day # 3) and IV ceftriaxone (day # 3) Continue to wean his oxygen as tolerated to maintain saturations above 88%. He continues to appear to improve clinically, we'll downgrade him to MedSurg with telemetry 2. Rule out PE - Patient presented with symptoms concerning for PE - D-dimer was elevated at 2529.3 - CTA was negative for pulmonary embolism, making this diagnosis unlikely 3. History of smoking - No official COPD diagnosis. He does have an albuterol inhaler at home for shortness of breath - He does have diffuse wheezing suggestive of possible COPD exacerbation. Will do duonebs scheduled every 6 hours, with additional prn treatments every 2 hours. He is on Solu-Medrol 60 mg every 6 hours - Titrate oxygen to maintain saturation of 88%, Will continue to wean his oxygen as tolerated 4. Hypertension -Continue home losartan 5. Likely LUL, undiagnosed. Patient refuses to have a sleep study but likely has LUL. He states his PCP has discussed this with him. Patient continues to have higher supplemental oxygen requirements overnight since admitted. Suspect this is related to undiagnosed LUL. Will check overnight pulse oximetry to screen for LUL 6. History of seizures. -Continue home phenytoin and phenobarbital. Consider checking phenytoin levels 7. GERD. Continue with home PPI 8. Diabetes mellitus. -Hold home metformin, will be on sliding scale insulin while inpatient 9. Plaque psoriasis. -His lesions do not appear infected, we'll continue to monitor. He is not currently on any medication for this. Ordered betamethasone cream which can be applied to these areas for symptomatic relief 10. Keratoconjunctivitis sicca. -Continue home fish oil supplement 11. DVT prophylaxis - Lovenox DISPOSITION: Transferred to [facility] with telemetry today VS, I&O, 24H, Marsha Vital Signs/I&O Vital Signs Date Time Temp Pulse Resp B/P (MAP) Pulse Ox O2 Delivery O2 Flow Rate FiO2 11/21/18 08:41 132/81 11/21/18 08:00 4.0 11/21/18 08:00 97.2 114 18 92 11/20/18 20:11 Nasal Cannula I&O- Last 24 Hours up to 6 AM 11/21/18 06:00 Intake Total 2040 ml Output Total 1050 ml Balance 990 ml Laboratory Data 24H LABS Laboratory Tests 2 11/20/18 16:48: Bedside Glucose (Misc Panel) 120H 11/20/18 21:15: Bedside Glucose (Misc Panel) 117H 11/21/18 04:49: Nucleated Red Blood Cells % (auto) 0.0, Anion Gap 3L, Glomerular Filtration Rate > 60.0, Blood Urea Nitrogen 17, Creatinine 1.02, Sodium Level 141, Potassium Level 4.9, Chloride Level 105, Carbon Dioxide Level 33H, Calcium Level 8.1L, Magnesium Level 2.0 11/21/18 11:11: Bedside Glucose (Misc Panel) 202H CBC/BMP Laboratory Tests 11/21/18 04:49 Red Blood Count 4.07 L, Mean Corpuscular Volume 98.0 H, Mean Corpuscular Hemoglobin 30.2, Mean Corpuscular Hemoglobin Concent 30.8 L, Red Cell Distribution Width 13.1, Calcium Level 8.1 L Microbiology Microbiology 11/19/18 Blood Culture - Preliminary, Resulted No growth after 24 hours . All specim... 11/19/18 Blood Culture - Preliminary, Resulted No growth after 24 hours . All specim... 11/19/18 Gram Stain - Final, Complete 11/19/18 Sputum Culture - Final, Complete Yeast Like Organism DAIN VALADEZ PGY-1 Nov 21, 2018 14:32
[2018-11-21 14:51] LABS: ANTINUCLEAR ANTIBODIES DIRECT Negative (Negative)
[2018-11-21 15:00] VITALS: BP 157/93
[2018-11-21] MEDS: cefTRIAXone SOD 1 GM in D5W MINI-BAG PLUS 50 ML IV SCH (17:44)
[2018-11-21] MEDS: ENOXAPARIN 40 MG/0.4 ML SYRINGE (J1650) SC SCH (17:44)
[2018-11-21] MEDS: AZITHROMYCIN INJ 500 MG, VIAL MATE ADAPTER 1 EACH in D5W 250 ML IV SCH (21:47)
[2018-11-21] MEDS: PRAVASTATIN 10 MG TAB PO SCH (21:48)
[2018-11-21] MEDS: ACETAMINOPHEN TAB 650MG DOSE (2X325MG) PO SCH (21:49)
[2018-11-21 22:00] VITALS: BP 158/95
[2018-11-22] MEDS: IPRATROPIUM 0.5MG/ALBUTEROL 2.5MG INH SOL UD 3ML (DUONEB)(J7620) NEB SCH ×5 (00:49→23:21)
[2018-11-22] MEDS: methylPREDNISolone INJ 125 MG/2 ML VIAL (J2930) IV SCH ×4 (02:04→21:15)
[2018-11-22 05:16] VITALS: O2SAT 92
[2018-11-22 06:00] VITALS: BP 152/85
[2018-11-22 06:01] LABS: HEMATOCRIT 39.5 % (42.0-52.0); HEMOGLOBIN 12.7 g/dl (13.5-17.5); MEAN CORPUSCULAR HEMOGLOBIN 29.7 pg (27.0-33.0); MEAN CORPUSCULAR HGB CONC 32.2 g/dl (32.0-36.5); MEAN CORPUSCULAR VOLUME 92.5 fl (80.0-96.0); PLATELET COUNT, AUTOMATED 154 10^3/uL (150-450); RED BLOOD COUNT 4.27 10^6/uL (4.30-6.10); WHITE BLOOD COUNT 8.4 10^3/uL (4.0-10.0)
[2018-11-22 06:25] LABS: BLOOD UREA NITROGEN 21 MG/DL (7-18); CARBON DIOXIDE LEVEL 32 MEQ/L (21-32); CHLORIDE LEVEL 102 MEQ/L (98-107); CREATININE FOR GFR 1.02 MG/DL (0.70-1.30); GLOMERULAR FILTRATION RATE > 60.0 (>42); GLUCOSE, FASTING 195 MG/DL (70-100); POTASSIUM SERUM 4.3 MEQ/L (3.5-5.1); SODIUM LEVEL 137 MEQ/L (136-145)
[2018-11-22] MEDS: HumaLOG INSULIN (NovoLOG) PER UNIT SC SCH ×4 (08:37→21:00)
[2018-11-22] MEDS: PANTOPRAZOLE 40MG TAB (PROTONIX) PO SCH (08:37)
[2018-11-22] MEDS: OMEGA-3 1000MG CAPSULE PO SCH ×2 (08:37→21:14)
[2018-11-22] MEDS: PHENYTOIN ER 100 MG CAP PO SCH ×3 (08:38→21:14)
[2018-11-22] MEDS: guaiFENesin ER 600 MG TAB PO SCH ×2 (08:38→21:14)
[2018-11-22] MEDS: LOSARTAN 50 MG TAB PO SCH (08:39)
[2018-11-22] MEDS: BETAMETHASONE VAL 0.1% OINT 15 GM TOP SCH ×2 (08:40→21:16)
[2018-11-22] MEDS: NYSTATIN 100,000 UNITS/GM TOPICAL PWD 15 GM TOP SCH ×2 (08:40→21:16)
[2018-11-22] MEDS: PHENobarbital 30 MG TAB PO SCH ×3 (09:28→21:15)
--- NOTE | 2018-11-22 13:38 | IPNPDOC ---
Date Seen The patient was seen on 11/22/18. Progress Note SUBJECTIVE: Patient is a 68-year-old male with past medical history of hypertension, diabetes mellitus, seizure disorder, GERD, obesity, Keratoconjunctivitis sicca, plaque psoriasis who presents to the emergency room today with a two-week history of productive cough and progressive shortness of breath. Patient is seen and examined today in his room. He states he feels continued improvement in his shortness of breath, cough, and fatigue. He states he is producing less sputum. He continues with the DuoNeb treatments, which she states helpful to clear his congestion. He denies any new complaints today. He denies any fevers, chills, night sweats, headaches, vision change, chest pain, palpitations, nausea, vomiting, abdominal pain, diarrhea, urinary dysfunction, increased leg swelling, weakness. He did better last night with his oxygen requirements and only required 1 L nasal cannula consistently. OBJECTIVE: PHYSICAL EXAMINATION: VITAL SIGNS: Please see below. GENERAL: Patient appears comfortable lying in bed. No acute respiratory distress. HEENT: PERRLA, EOMI, moist mucous membranes. No lesions in the mouth, pharynx normal. Mallampati score of 2-3 CARDIOVASCULAR: Rate tachycardic, normal rhythm, normal S1 and normal S2, no murmurs, rubs or gallops. LUNGS: Diffuse expiratory wheezing bilaterally. Left-sided lung sounds slightly diminished compared to the right, improved from yesterday. ABDOMEN: Soft, nontender, distended. Bowel sounds present. Umbilical hernia pre sent and reducible. EXTREMITIES: Pulses 2+/4 and radial and posterior tibial arteries. Wearing SPENCER s tockings, mild nonpitting edema in bilateral lower extremities. NEUROLOGICAL: Alert and oriented 3 to person, place, time. Cranial nerves III - XII grossly intact. No focal deficits. PSYCHIATRIC: Mood and affect normal. LABORATORY DATA, IMAGING STUDIES, MICROBIOLOGY: Please see below. IMAGING: CXR 11/19: Mild chronic changes without evidence of acute infiltrate. CTA 11/19: No CT evidence of pulmonary embolism. Diffuse bronchiolar wall thickening compatible with airway inflammation. Diffuse interstitial infiltrate left lung. EKG: sinus tachycardia ASSESSMENT AND PLAN: 68-year-old male with past medical history of hypertension, diabetes mellitus, seizure disorder, GERD, obesity, Ker atoconjunctivitis sicca, plaque psoriasis who presents to the emergency room today with a two-week history of productive cough and progressive shortness of breath, who was admitted for acute respiratory hypoxia, likely secondary to left lung interstitial pneumonia PROBLEMS: 1. Acute respiratory hypoxia, likely secondary to pneumonia - Unsure if atypical versus bacterial - White blood cell count was normal at 6.7 on admission and continues to be stable, lactic acid was normal at 1.2, procalcitonin level 0.3 - CXR did not show acute pulmonary process. CTA did show diffuse left lung infiltrates. High-resolution CT showed interstitial prominence and mild tree-in-bud infiltrates in the left lung, which are new since September 10 - Blood cultures 2 negative at 48 hours Sputum culture positive for yeast-like organism - Will check urine for Legionella antigen and strep pneumo antigen. - Patient has a history of multiple rheumatological issues including his plaque psoriasis and Keratoconjunctivitis sicca, in addition to the finding of diffuse bronchial thickening on the CTA, will check an SARAH and anti-CCP levels for possible rheumatologic pulmonary process. Anti-CCP and SARAH screen both negative -Ordered Mucinex, chest PT, Acapella to help break up mucus. Inspiratory spirometry to help with lung expansion Continue Solu-Medrol 60 mg every 6 hours Continue with IV azithromycin (day # 5) and IV ceftriaxone (day #5) Continue to wean his oxygen as tolerated to maintain saturations above 88%. He continues to appear to improve clinically, and has been able to start to wean off of supplemental oxygen, which he is not normally on at home. 2. Rule out PE - Patient presented with symptoms concerning for PE - D-dimer was elevated at 2529.3 - CTA was negative for pulmonary embolism, making this diagnosis unlikely 3. History of smoking - No official COPD diagnosis. He does have an albuterol inhaler at home for shortness of breath - He does have diffuse wheezing suggestive of possible COPD exacerbation. Will do duonebs scheduled every 6 hours, with additional prn treatments every 2 hours. He is on Solu-Medrol 60 mg every 6 hours - Titrate oxygen to maintain saturation of 88%, Will continue to wean his oxygen as tolerated. 4. Hypertension -Continue home losartan 5. Likely LUL, undiagnosed. Patient refuses to have a sleep study but likely has LUL. He states his PCP has discussed this with him. Patient continues to have higher supplemental oxygen requirements overnight sin ce admitted. Suspect this is related to undiagnosed LUL. Will check overnight pulse oximetry to screen for LUL 6. History of seizures. -Continue home phenytoin and phenobarbital. Consider checking phenytoin levels 7. GERD. Continue with home PPI 8. Diabetes mellitus. -Hold home metformin, will be on sliding scale insulin while inpatient 9. Plaque psoriasis. -His lesions do not appear infected, we'll continue to monitor. He is not currently on any medication for this. Ordered betamethasone cream which can be applied to these areas for symptomatic relief 10. Keratoconjunctivitis sicca. -Continue home fish oil supplement 11. DVT prophylaxis - Lovenox DISPOSITION: MedSur with telemetry VS, I&O, 24H, Fishbone Vital Signs/I&O Vital Signs Date Time Temp Pulse Resp B/P (MAP) Pulse Ox O2 Delivery O2 Flow Rate FiO2 11/22/18 08:39 139/73 11/22/18 06:00 96.3 92 18 96 1.0 11/22/18 05:16 Nasal Cannula I&O- Last 24 Hours up to 6 AM 11/22/18 06:00 Intake Total 1380 ml Output Total 850 ml Balance 530 ml Laboratory Data 24H LABS Laboratory Tests 2 11/21/18 16:21: Bedside Glucose (Misc Panel) 136H 11/21/18 21:23: Bedside Glucose (Misc Panel) 156H 11/22/18 05:27: Nucleated Red Blood Cells % (auto) 0.0, Anion Gap 3L, Glomerular Filtration Rate > 60.0, Blood Urea Nitrogen 21H, Creatinine 1.02, Sodium Level 137, Potassium Level 4.3, Chloride Level 102, Carbon Dioxide Level 32, Calcium Level 9.0, Magnesium Level 2.0 CBC/BMP Laboratory Tests 11/22/18 05:27 Red Blood Count 4.27 L, Mean Corpuscular Volume 92.5, Mean Corpuscular Hemoglobin 29.7, Mean Corpuscular Hemoglobin Concent 32.2, Red Cell Distribution Width 12.9, Calcium Level 9.0 Microbiology Microbiology 11/19/18 Blood Culture - Preliminary, Resulted No Growth after 48 hours. All Specime... 11/19/18 Blood Culture - Preliminary, Resulted No Growth after 48 hours. All Specime... 11/19/18 Gram Stain - Final, Complete 11/19/18 Sputum Culture - Final, Complete Yeast Like Organism DAIN VALADEZ PGY-1 Nov 22, 2018 12:23
[2018-11-22 14:01] VITALS: BP 158/68
[2018-11-22 15:47] LABS: BODY FLUID CULTURE Not Indicated (.); LEGIONELLA ANTIGEN URINE Negative (Negative); ORGANISM ID Not indicated. (.); SPECIMEN SOURCE Urine (.); URINE STREP PNEUMONIAE ANTIGEN Negative (Negative)
[2018-11-22] MEDS: ENOXAPARIN 40 MG/0.4 ML SYRINGE (J1650) SC SCH (17:21)
[2018-11-22] MEDS: cefTRIAXone SOD 1 GM in D5W MINI-BAG PLUS 50 ML IV SCH (17:21)
[2018-11-22 19:00] VITALS: O2SAT 91
[2018-11-22] MEDS: AZITHROMYCIN INJ 500 MG, VIAL MATE ADAPTER 1 EACH in D5W 250 ML IV SCH (19:38)
[2018-11-22] MEDS: ACETAMINOPHEN TAB 650MG DOSE (2X325MG) PO SCH (21:14)
[2018-11-22] MEDS: PRAVASTATIN 10 MG TAB PO SCH (21:14)
[2018-11-22 22:00] VITALS: BP 141/69
[2018-11-23] VITALS (7 sets, daily range): BP systolic 132–158; BP diastolic 75–92; O2SAT 90
[2018-11-23] MEDS: methylPREDNISolone INJ 125 MG/2 ML VIAL (J2930) IV SCH ×2 (03:17→08:08)
[2018-11-23 06:55] LABS: HEMATOCRIT 41.4 % (42.0-52.0); HEMOGLOBIN 13.2 g/dl (13.5-17.5); MEAN CORPUSCULAR HGB CONC 31.9 g/dl (32.0-36.5); MEAN CORPUSCULAR VOLUME 94.1 fl (80.0-96.0); PLATELET COUNT, AUTOMATED 159 10^3/uL (150-450)
[2018-11-23 07:17] LABS: BLOOD UREA NITROGEN 23 MG/DL (7-18); CALCIUM LEVEL 8.9 MG/DL (8.8-10.2); CARBON DIOXIDE LEVEL 31 MEQ/L (21-32); CHLORIDE LEVEL 102 MEQ/L (98-107); CREATININE FOR GFR 0.99 MG/DL (0.70-1.30); GLOMERULAR FILTRATION RATE > 60.0 (>42); GLUCOSE, FASTING 164 MG/DL (70-100); MAGNESIUM LEVEL 1.9 MG/DL (1.8-2.4); POTASSIUM SERUM 4.5 MEQ/L (3.5-5.1); SODIUM LEVEL 139 MEQ/L (136-145)
[2018-11-23] MEDS: IPRATROPIUM 0.5MG/ALBUTEROL 2.5MG INH SOL UD 3ML (DUONEB)(J7620) NEB SCH (07:24)
[2018-11-23] MEDS: HumaLOG INSULIN (NovoLOG) PER UNIT SC SCH ×4 (08:08→21:00)
[2018-11-23] MEDS: PHENYTOIN ER 100 MG CAP PO SCH ×3 (08:08→22:14)
[2018-11-23] MEDS: PANTOPRAZOLE 40MG TAB (PROTONIX) PO SCH (08:09)
[2018-11-23] MEDS: PHENobarbital 30 MG TAB PO SCH ×3 (08:09→22:16)
[2018-11-23] MEDS: NYSTATIN 100,000 UNITS/GM TOPICAL PWD 15 GM TOP SCH ×2 (08:09→22:16)
[2018-11-23] MEDS: OMEGA-3 1000MG CAPSULE PO SCH ×2 (08:09→22:14)
[2018-11-23] MEDS: guaiFENesin ER 600 MG TAB PO SCH ×2 (08:09→22:15)
[2018-11-23] MEDS: LOSARTAN 50 MG TAB PO SCH (08:10)
[2018-11-23] MEDS: BETAMETHASONE VAL 0.1% OINT 15 GM TOP SCH ×2 (08:10→22:17)
[2018-11-23] MEDS: AZITHROMYCIN 250 MG TAB PO SCH (09:54)
[2018-11-23] MEDS: CEFDINIR 300 MG CAP (OMNICEF) PO SCH ×2 (09:54→22:14)
--- NOTE | 2018-11-23 10:51 | IPNPDOC ---
Date Seen The patient was seen on 11/23/18. Progress Note SUBJECTIVE: Patient is a 68-year-old male with past medical history of hypertension, diabetes mellitus, seizure disorder, GERD, obesity, Keratoconjunctivitis sicca, plaque psoriasis who presents to the emergency room today with a two-week history of productive cough and progressive shortness of breath. Patient reports he is breathing well today and was able to stay off supplemental oxygen for most days yesterday and overnight last night. They did try to do the overnight pulse ox last night, the patient reports that the machine was not working. He states his cough is better and the Mucinex is helping him getting worse. He states it was tied up a little bit since yesterday. He denies any new complaints today including fevers, chills, night sweats, headaches, vision change, chest pain, palpitations, nausea, vomiting, abdominal pain, diarrhea, urinary dysfunction, increased leg swelling, weakness. OBJECTIVE: PHYSICAL EXAMINATION: VITAL SIGNS: Please see below. GENERAL: Patient appears comfortable lying in bed. No acute respiratory distress. HEENT: PERRLA, EOMI, moist mucous membranes. No lesions in the mouth, pharynx normal. Mallampati score of 2-3 CARDIOVASCULAR: Rate tachycardic, normal rhythm, normal S1 and normal S2, no murmurs, rubs or gallops. LUNGS: Lungs clear to auscultation bilaterally. ABDOMEN: Soft, nontender, distended. Bowel sounds present. Umbilical hernia present and reducible. EXTREMITIES: Pulses 2+/4 and radial and posterior tibial arteries. mild nonpitting edema in bilateral lower extremities. NEUROLOGICAL: Alert and oriented 3 to person, place, time. Cranial nerves III - XII grossly intact. No focal deficits. PSYCHIATRIC: Mood and affect normal. LABORATORY DATA, IMAGING STUDIES, MICROBIOLOGY: Please see below. IMAGING: CXR 11/19: Mild chronic changes without evidence of acute infiltrate. CTA 11/19: No CT evidence of pulmonary embolism. Diffuse bronchiolar wall thickening compatible with airway inflammation. Diffuse interstitial infiltrate left lung. EKG: sinus tachycardia ASSESSMENT AND PLAN: 68-year-old male with past medical history of hypertension, diabetes mellitus, seizure disorder, GERD, obesity, Keratoconjunctivitis sicca, plaque psoriasis who presents to the emergency room today with a two-week history of productive cough and progressive shortness of breath, who was admitted for acute respiratory hypoxia, likely secondary to left lung interstitial pneumonia PROBLEMS: 1. Acute respiratory hypoxia, likely secondary to pneumonia - Unsure if atypical versus bacterial - White blood cell count was normal at 6.7 on admission and continues to be stable, lactic acid was normal at 1.2, procalcitonin level 0.3 - CXR did not show acute pulmonary process. CTA did show diffuse left lung infiltrates. High-resolution CT showed interstitial prominence and mild tree-in-bud infiltrates in the left lung, which are new since September 10 - Blood cultures 2 negative at 48 hours Sputum culture positive for yeast-like organism - Urine for Legionella antigen and strep pneumo antigen both negative. - Patient has a history of multiple rheumatological issues including his plaque psoriasis and Keratoconjunctivitis sicca, in addition to the finding of diffuse bronchial thickening on the CTA, will check an SARAH and anti-CCP levels for possible rheumatologic pulmonary process. Anti-CCP and SARAH screen both negative -Ordered Mucinex, chest PT, Acapella to help break up mucus. Inspiratory spirometry to help with lung expansion Discontinue Solu-Medrol today and start oral prednisone 40 mg tomorrow Switch to PO azithromycin (day # 6) and PO Cefdinir (day # 6) Continue to wean his oxygen as tolerated to maintain saturations above 88%. . He was able to wean off supplemental oxygen yesterday and continues to do well on room air today, maintaining saturations above 88%. 2. Rule out PE - Patient presented with symptoms concerning for PE - D-dimer was elevated at 2529.3 - CTA was negative for pulmonary embolism, making this diagnosis unlikely 3. History of smoking - No official COPD diagnosis. He does have an albuterol inhaler at home for shortness of breath - He does have diffuse wheezing suggestive of possible COPD exacerbation. Treated with duonebs scheduled every 6 hours, with additional prn treatments e very 2 hours, and Solu-Medrol 60 mg every 6 hours - He was able to wean off oxygen yesterday and is doing well with saturations above 88% on room air. Will switch him to oral prednisone tomorrow and discontinue his scheduled DuoNebs today 4. Hypertension -Continue home losartan 5. Likely LUL, undiagnosed. Patient refuses to have a sleep study but likely has LUL. He states his PCP has discussed this with him. Patient continues to have higher supplemental oxygen requirements overnight since admitted. Suspect this is related to undiagnosed LUL. Will check overnight pulse oximetry to screen for LUL 6. History of seizures. -Continue home phenytoin and phenobarbital. 7. GERD. Continue with home PPI 8. Diabetes mellitus. -Hold home metformin, will be on sliding scale insulin while inpatient 9. Plaque psoriasis. -His lesions do not appear infected, we'll continue to monitor. He is not currently on any medication for this. Ordered betamethasone cream which can be applied to these areas for symptomatic relief 10. Keratoconjunctivitis sicca. -Continue home fish oil supplement 11. DVT prophylaxis - Lovenox DISPOSITION: MedSurg with telemetry, likely d/c tomorrow VS, I&O, 24H, Fishbone Vital Signs/I&O Vital Signs Date Time Temp Pulse Resp B/P (MAP) Pulse Ox O2 Delivery O2 Flow Rate FiO2 11/23/18 09:30 96.4 116 20 147/92 (110) 90 11/23/18 06:00 Room Air 11/22/18 06:00 1.0 I&O- Last 24 Hours up to 6 AM 11/23/18 06:00 Intake Total 1690 ml Balance 1690 ml Laboratory Data 24H LABS Laboratory Tests 2 11/22/18 11:46: Bedside Glucose (Misc Panel) 142H 11/22/18 16:51: Bedside Glucose (Misc Panel) 148H 11/22/18 20:15: Bedside Glucose (Misc Panel) 175H 11/23/18 06:01: Nucleated Red Blood Cells % (auto) 0.0, Anion Gap 6L, Glomerular Filtration Rate > 60.0, Blood Urea Nitrogen 23H, Creatinine 0.99, Sodium Level 139, Potassium Level 4.5, Chloride Level 102, Carbon Dioxide Level 31, Calcium Level 8.9, Magnesium Level 1.9 CBC/BMP Laboratory Tests 11/23/18 06:01 Red Blood Count 4.40, Mean Corpuscular Volume 94.1, Mean Corpuscular Hemoglobin 30.0, Mean Corpuscular Hemoglobin Concent 31.9 L, Red Cell Distribution Width 12.9, Calcium Level 8.9 Microbiology Microbiology 11/19/18 Blood Culture - Preliminary, Resulted No Growth after 72 hours. All specime... 11/19/18 Blood Culture - Preliminary, Resulted No Growth after 72 hours. All specime... 11/19/18 Gram Stain - Final, Complete 11/19/18 Sputum Culture - Final, Complete Yeast Like Organism DAIN VALADEZ PGY-1 Nov 23, 2018 10:51
[2018-11-23] MEDS: predniSONE 20 MG TAB PO SCH (11:46)
[2018-11-23] MEDS: ENOXAPARIN 40 MG/0.4 ML SYRINGE (J1650) SC SCH (17:15)
[2018-11-23] MEDS: IPRATROPIUM 0.5MG/ALBUTEROL 2.5MG INH SOL UD 3ML (DUONEB)(J7620) INH PRN (18:10)
[2018-11-23] MEDS: PRAVASTATIN 10 MG TAB PO SCH (22:14)
[2018-11-23] MEDS: ACETAMINOPHEN TAB 650MG DOSE (2X325MG) PO SCH (22:15)
[2018-11-24 05:55] LABS: HEMATOCRIT 41.7 % (42.0-52.0); HEMOGLOBIN 13.4 g/dl (13.5-17.5); MEAN CORPUSCULAR HGB CONC 32.1 g/dl (32.0-36.5); MEAN CORPUSCULAR VOLUME 93.3 fl (80.0-96.0); PLATELET COUNT, AUTOMATED 140 10^3/uL (150-450); RED BLOOD COUNT 4.47 10^6/uL (4.30-6.10); WHITE BLOOD COUNT 8.2 10^3/uL (4.0-10.0)
[2018-11-24 06:00] VITALS: BP 114/63
[2018-11-24 06:13] LABS: BLOOD UREA NITROGEN 25 MG/DL (7-18); CALCIUM LEVEL 8.4 MG/DL (8.8-10.2); CARBON DIOXIDE LEVEL 32 MEQ/L (21-32); CHLORIDE LEVEL 105 MEQ/L (98-107); GLOMERULAR FILTRATION RATE > 60.0 (>42); GLUCOSE, FASTING 130 MG/DL (70-100); POTASSIUM SERUM 4.1 MEQ/L (3.5-5.1); SODIUM LEVEL 141 MEQ/L (136-145)
[2018-11-24] MEDS: guaiFENesin ER 600 MG TAB PO SCH (08:50)
[2018-11-24] MEDS: CEFDINIR 300 MG CAP (OMNICEF) PO SCH (08:50)
[2018-11-24] MEDS: predniSONE 20 MG TAB PO SCH (08:50)
[2018-11-24] MEDS: PHENYTOIN ER 100 MG CAP PO SCH (08:50)
[2018-11-24] MEDS: HumaLOG INSULIN (NovoLOG) PER UNIT SC SCH (08:50)
[2018-11-24] MEDS: PHENobarbital 30 MG TAB PO SCH (08:50)
[2018-11-24] MEDS: PANTOPRAZOLE 40MG TAB (PROTONIX) PO SCH (08:51)
[2018-11-24] MEDS: AZITHROMYCIN 250 MG TAB PO SCH (08:51)
[2018-11-24] MEDS: NYSTATIN 100,000 UNITS/GM TOPICAL PWD 15 GM TOP SCH (08:51)
[2018-11-24] MEDS: BETAMETHASONE VAL 0.1% OINT 15 GM TOP SCH (08:51)
[2018-11-24] MEDS: OMEGA-3 1000MG CAPSULE PO SCH (08:51)
[2018-11-24 08:54] VITALS: BP 150/90
[2018-11-24] MEDS: LOSARTAN 50 MG TAB PO SCH (08:54)
[2018-11-24] MEDS ORDERED: PRED10TA2 PO (10:01)
[2018-11-24] MEDS ORDERED: CEFD300CAP PO (10:01)
[2018-11-24] MEDS ORDERED: AZIT500T2 PO (10:02)
--- NOTE | 2018-11-24 10:27 | DS.PDOC ---
Discharge Summary General Date of Admission Nov 19, 2018 at 17:42 Date of Discharge 11/24/2018 Discharge Summary DISCHARGE DIAGNOSIS:Acute hypoxic respiratory failure SECONDARY DIAGNOSIS: 1. Pneumonia 2. Hypertension 3. Seizure disorder 4. Gastroesophageal reflux disease 5 diabetes 6 plaque psoriasis PROCEDURES PERFORMED DURING STAY: None. CONSULTANTS: None HOSPITAL COURSE: Patient is a 68-year-old man who presented with acute hypoxic respiratory failure. He was found to have interstitial infiltrate with qbio-de-jag-like findings on left sided predominance of his lung. He has had cough and had been feeling unwell for 2-3 weeks prior to his admission. He did not have significant fever or leukocytosis she was tachycardic and was concerned for an atypical pneumonia or walking pneumonia. He was impaired to start on ceftriaxone and azithromycin and also his progress was slow he did gradually improved to his baseline respiratory status and was comfortable on room air ambulating with prompt resolution of symptoms. Cultures were essentially ne gative during his stay DISCHARGE MEDICATIONS: Please see below. ALLERGIES: Please see below. SUBJECTIVE: Patient reports feeling well and back to his normal otherwise patient denies chest pain, shortness, breath, nausea, vomiting, fevers, chills OBJECTIVE: PHYSICAL EXAMINATION: VITAL SIGNS: Please see below. GENERAL: Pleasant obese man sitting up in bed awake alert oriented speaking in complete sentences no acute distress HEENT: Moist mucous membranes no elevation and CVP CARDIOVASCULAR: S1 S2 regular no additional heart sounds appreciated. RESPIRATORY: Clear to auscultation bilaterally. Improved aeration of the left side ABDOMINAL: Bowel sounds present abdomen soft and nontender, obese EXTREMITIES: No clubbing, cyanosis, edema NEUROLOGICAL: Spontaneously moves all 4 extremities cranial 2 through 12 grossly intact, no gross focal deficits appreciated PSYCHOLOGICAL: Appropriate LABORATORY DATA, MICROBIOLOGY: Please see below. IMAGING STUDIES: CTA chest:No CT evidence of pulmonary embolism. Diffuse bronchiolar wall thickening compatible with airway inflammation. Diffuse interstitial infiltrate left lung. 1. Slight interstitial prominence and mild tree in bud infiltrates of the left lung which are new since 09/05/2017. 2. Borderline splenomegaly. ECHOCARDIOGRAM: 1. Normal global left ventricular systolic function with mild concentric left ventricular hypertrophy. There were some features of left ventricular diastolic dysfunction manifested by abnormal relaxation. 2. Aortic valve sclerosis with trivial aortic stenosis, but no aortic regurgitation. 3. Isolated mildly dilated left atrium without evidence of significant mitral regurgitation. Probably related to underlying left ventricular diastolic dysfunction. 4. Trace tricuspid regurgitation with a normal calculated pulmonary artery systolic pressure. 5. A small pericardial effusion was noted, no evidence of cardiac tamponade DVT prophylaxis ordered: Lovenox ASSESSMENT AND PLAN: This is a 68-year-old man with acute hypoxic respiratory failure resolved likely secondary to an atypical pneumonia PROBLEMS: 1. Acute hypoxic respiratory failure secondary to likely atypical pneumonia: Cultures were negative during hospitalization however he did improve with antibiotic therapy and as such will complete a complete course of antibiotics. At this time is unclear but physical therapy is up ambulating independently he is no longer hypoxic he does have some mild tachycardia which he tells me is his chronic baseline and he is always running fast. I would recommend a close follow-up with his PCP to ensure resolution. Initially upon his presentation was concern for possibility. COPD given he has a history of tobacco abuse. However this is less likely he'll be discharged home on a steroid taper, he has no previous history of COPD 2. Hypertension: Controlled he is continued on losartan. 3. History of seizure disorder: Is continued on phenytoin and phenobarbital 4. Gastroesophageal reflux disease: He was continued on his PPI 5. Diabetes mellitus: He'll resume his home metformin 6. Plaque psoriasis: He did receive some topical steroid with good improvement during the stay he declines offers for further prescriptions. DISPOSITION: Home self care. DISCHARGE CONDITION: Improved and Stable. FOLLOW UP: PCP within 7 days ACTIVITY: As tolerated. DIET: As prior to admission TIME SPENT ON DISCHARGE: 50 minutes Vital Signs/I&Os Vital Signs Date Time Temp Pulse Resp B/P (MAP) Pulse Ox O2 Delivery O2 Flow Rate FiO2 11/24/18 08:54 150/90 11/24/18 06:00 97.9 104 20 93 1.0 11/23/18 21:30 Room Air I&O- Last 24 Hours up to 6 AM 11/24/18 06:00 Intake Total 1770 ml Output Total 0 ml Balance 1770 ml Laboratory Data Labs 24H Laboratory Tests 2 11/23/18 11:24: Bedside Glucose (Misc Panel) 140H 11/23/18 16:51: Bedside Glucose (Misc Panel) 132H 11/23/18 20:29: Bedside Glucose (Misc Panel) 241H 11/24/18 05:36: Nucleated Red Blood Cells % (auto) 0.2H, Anion Gap 4L, Glomerular Filtration Rate > 60.0, Blood Urea Nitrogen 25H, Creatinine 1.10, Sodium Level 141, Potassium Level 4.1, Chloride Level 105, Carbon Dioxide Level 32, Calcium Level 8.4L, Magnesium Level 2.0 CBC/BMP Laboratory Tests 11/24/18 05:36 Red Blood Count 4.47, Mean Corpuscular Volume 93.3, Mean Corpuscular Hemoglobin 30.0, Mean Corpuscular Hemoglobin Concent 32.1, Red Cell Distribution Width 13.2, Calcium Level 8.4 L FSBS Laboratory Tests Test 11/23/18 11:24 11/23/18 16:51 11/23/18 20:29 Range/Units Bedside Glucose (Misc Panel) 140 132 241 83-110 MG/DL Microbiology Microbiology 11/19/18 Blood Culture - Preliminary, Resulted No Growth after 72 hours. All specime... 11/19/18 Blood Culture - Preliminary, Resulted No Growth after 72 hours. All specime... 11/19/18 Gram Stain - Final, Complete 11/19/18 Sputum Culture - Final, Complete Yeast Like Organism Discharge Medications Scheduled Acetaminophen (Acetaminophen) 325 Mg Tablet, 650 MG PO QHS, (Reported) Azithromycin (Azithromycin) 500 Mg Tablet, 500 MG PO DAILY Cefdinir (Cefdinir) 300 Mg Capsule, 300 MG PO BID Celecoxib (Celecoxib) 200 Mg Cap, 200 MG PO BID, (Reported) Losartan Potassium (Losartan Potassium) 50 Mg Tab, 50 MG PO DAILY, (Reported) Metformin HCl (Metformin HCl) 500 Mg Tablet, 500 MG PO BID, (Reported) [place]-3/Dha/Epa/Fish Oil (Fish Oil 1,000 mg Softgel) 1 Each Capsule, 1,000 MG PO BID, (Reported) Pantoprazole Sodium (Pantoprazole Sodium) 40 Mg Tab, 40 MG PO DAILY, (Reported) Phenobarbital (Phenobarbital) 16.2 Mg Tablet, 16.2 MG PO TID, (Reported) Phenytoin Sodium Extended (Phenytoin Sodium Extended) 100 Mg Cap, 100 MG PO TID, (Reported) Pravastatin Sodium (Pravastatin Sodium) 10 Mg Tablet, 10 MG PO QPM, (Reported) TAKES AT DINNERTIME Prednisone (Prednisone) 10 Mg Tablet, 10 MG PO TAPER Take 4 tabs daily x 3 days, then 3 tabs daily x 3 days, then 2 tabs daily x 3 days, then 1 tab daily x 3 days and stop [absorbine jr] , 1 DOSE TOP QHS, (Reported) APPLY TO FEET Scheduled PRN Albuterol Sulfate (Proair Hfa) 108 Mcg/Act Aer, 2 PUFF INH Q4H PRN for SHORTNESS OF BREATH, (Reported) Allergies Coded Allergies: No Known Allergies (Unverified , 05/31/18) AJAY VALDOVINOS MD Nov 24, 2018 10:26
--- NOTE | 2018-11-25 08:16 | NOCOX ---
DATE OF PROCEDURE: 11/23/2018 Study was performed on room air. The total time total valid sampling time was 3 hours and 12 minutes. The patient did have a period during the night where his pulse ox was dislodged. The highest oxygen saturation was 99%; lowest oxygen saturation with 76%. Highest heart rate was 126 with the lowest heart rate of 79. The total time spent with an oxygen saturation less than 88% was 1 hour and 27 minutes. The patient's desaturation event index was approximately 50. Graphically, the patient did have significant oxygen saturation and heart rate variability during the periods that he did have the probe on. IMPRESSION: Abnormal nocturnal oximetry study. The patient does qualify for nasal cannula oxygen supplementation; however, given the significant oxygen saturation variability and increased desaturation event index, would consider evaluation for sleep disordered breathing if clinically indicated. CYRUS
== END 2018-11-24 10:57 | disposition home or self-care (01) | DRG 193 ==
LOC: M ED 13:54 → M ED INP 17:42 → M ICU 20:47 → M MSPAV 11-21 15:47
PROVIDERS: ADMIT Internal Medicine; ATTEND Internal Medicine
DX: J18.9 Pneumonia, unspecified organism (principal); J96.01 Acute respiratory failure with hypoxia; I10 Essential (primary) hypertension; E11.9 Type 2 diabetes mellitus without complications; G40.909 Epilepsy, unspecified, not intractable, without status epilepticus; R09.02 Hypoxemia; K21.9 Gastro-esophageal reflux disease without esophagitis; E66.9 Obesity, unspecified; M35.00 Sjogren syndrome, unspecified; L40.0 Psoriasis vulgaris; Z90.49 Acquired absence of other specified parts of digestive tract; Z98.49 Cataract extraction status, unspecified eye; Z87.891 Personal history of nicotine dependence; Z79.84 Long term (current) use of oral hypoglycemic drugs; Z79.899 Other long term (current) drug therapy; G47.33 Obstructive sleep apnea (adult) (pediatric)

== ENCOUNTER → 2018-11-19 | Outpatient (CLI) | payer MEDICARE, OTHER ==
[~2018-11-19] MED LIST changes: +ACET1TAB55 PO; +BAYE325T12 PO; +METF500T13 PO; +OMEG10002 PO; +PHEN16.2 PO; +PRAV10TA4 PO; +fish oil
--- NOTE | 2018-11-20 07:53 | REP ---
CHEST, TWO VIEWS: HISTORY: Dyspnea. COMPARISON: 09/05/2017 The lungs are clear. The heart is normal in size. The pulmonary vasculature is normal in appearance. The bony structure is intact. IMPRESSION: No acute disease. Electronically Signed by Blake Jones MD 11/20/2018 08:20 A
== END ==
LOC: M WUC 12:40
PROVIDERS: ATTEND Nurse Practitioner Family
DX: R06.00 Dyspnea, unspecified (principal)

== ENCOUNTER → 2018-11-27 | Outpatient (REF) | payer MEDICARE, OTHER ==
[~2018-11-27] MED LIST changes: +ACET1TAB55 PO; +AZIT500T2 PO; +BAYE325T12 PO; +CEFD300CAP PO; +METF500T13 PO; +OMEG10002 PO; +PHEN16.2 PO; +PRAV10TA4 PO; +PRED10TA2 PO; +fish oil
== END ==
LOC: M SFHCPLAZ 11:39
PROVIDERS: ATTEND Family Medicine
DX: Z09 Encounter for follow-up examination after completed treatment for conditions other than malignant neoplasm (principal)

== ENCOUNTER → 2019-05-21 | Outpatient (REF) | payer MEDICARE, OTHER ==
[~2019-05-21] MED LIST changes: -AZIT500T2 PO; +AZIT500T5 PO
[2019-05-21 14:06] LABS: BASO % 0.4 % (0.0-1.0); HEMATOCRIT 43.3 % (42.0-52.0); HEMOGLOBIN 13.3 g/dl (13.5-17.5); LYMPH # 0.8 10^3/uL (1.5-5.0); LYMPH % 15.6 % (24.0-44.0); MEAN CORPUSCULAR HEMOGLOBIN 29.4 pg (27.0-33.0); MEAN CORPUSCULAR HGB CONC 30.7 g/dl (32.0-36.5); MEAN CORPUSCULAR VOLUME 95.8 fl (80.0-96.0); MONO # 0.6 10^3/uL (0.0-0.8); MONO % 12.7 % (0.0-5.0); NEUTROPHILS # 3.5 10^3/uL (1.5-8.5); NEUTROPHILS % 70.9 % (36.0-66.0); PLATELET COUNT, AUTOMATED 120 10^3/uL (150-450); RED BLOOD COUNT 4.52 10^6/uL (4.30-6.10)
[2019-05-21 14:28] LABS: ALT/SGPT 46 U/L (12-78); BILIRUBIN,TOTAL 0.3 MG/DL (0.2-1.0); BLOOD UREA NITROGEN 15 MG/DL (7-18); CALCIUM LEVEL 8.3 MG/DL (8.8-10.2); CARBON DIOXIDE LEVEL 28 MEQ/L (21-32); CHLORIDE LEVEL 107 MEQ/L (98-107); CHOLESTEROL LEVEL 115 MG/DL (<200); CREATININE FOR GFR 0.93 MG/DL (0.70-1.30); GLOMERULAR FILTRATION RATE > 60.0 (>42); GLUCOSE, FASTING 155 MG/DL (70-100); HDL CHOLESTEROL 41 MG/DL (>40); POTASSIUM SERUM 4.3 MEQ/L (3.5-5.1); SODIUM LEVEL 140 MEQ/L (136-145); TRIGLYCERIDES LEVEL 233 MG/DL (<150)
[2019-05-21 14:29] LABS: ALBUMIN 3.7 GM/DL (3.2-5.2); CHOLESTEROL RISK RATIO 2.804 (<5); FREE T4 0.99 NG/DL (0.76-1.46); LDL CHOLESTEROL 27 MG/DL (<100); NON-HDL-C 74 MG/DL; PHENOBARBITAL LEVEL 5.5 UG/ML (15.0-40.0); PHENYTOIN (DILANTIN) 3.3 UG/ML (10.0-20.0)
[2019-05-21 14:51] LABS: MALB URINE SIEMENS 61.8 MG/L; MAU/CREAT RATIO 44.1 MCG/MG (0.0-30.0)
[2019-05-21 15:26] LABS: HEMOGLOBIN A1c 6.2 %
== END ==
LOC: M SFHCPLAZ 09:48
PROVIDERS: ATTEND Nurse Practitioner Family
DX: I10 Essential (primary) hypertension (principal); E11.9 Type 2 diabetes mellitus without complications; E78.5 Hyperlipidemia, unspecified; G40.909 Epilepsy, unspecified, not intractable, without status epilepticus

== ENCOUNTER → 2020-01-05 | Outpatient (CLI) | payer MEDICARE, OTHER ==
[~2020-01-05] MED LIST changes: +PANT40TA29 PO; -PANT40TA3 PO
[2020-01-05 14:20] LABS: BASO % 0.4 % (0.0-1.0); HEMATOCRIT 41.2 % (42.0-52.0); HEMOGLOBIN 13.1 g/dl (13.5-17.5); LYMPH # 0.9 10^3/uL (1.5-5.0); LYMPH % 19.3 % (24.0-44.0); MEAN CORPUSCULAR HGB CONC 31.8 g/dl (32.0-36.5); MEAN CORPUSCULAR VOLUME 94.3 fl (80.0-96.0); MONO # 0.5 10^3/uL (0.0-0.8); MONO % 10.6 % (0.0-5.0); NEUTROPHILS # 3.1 10^3/uL (1.5-8.5); NEUTROPHILS % 69.3 % (36.0-66.0); PLATELET COUNT, AUTOMATED 111 10^3/uL (150-450); RED BLOOD COUNT 4.37 10^6/uL (4.30-6.10); WHITE BLOOD COUNT 4.5 10^3/uL (4.0-10.0)
[2020-01-05 15:18] LABS: ALBUMIN 3.4 GM/DL (3.2-5.2); ALT/SGPT 41 U/L (12-78); BILIRUBIN,TOTAL 0.4 MG/DL (0.2-1.0); BLOOD UREA NITROGEN 16 MG/DL (7-18); CALCIUM LEVEL 8.6 MG/DL (8.8-10.2); CARBON DIOXIDE LEVEL 32 MEQ/L (21-32); CHLORIDE LEVEL 103 MEQ/L (98-107); CHOLESTEROL LEVEL 118 MG/DL (<200); CHOLESTEROL RISK RATIO 2.809 (<5); CREATININE FOR GFR 0.92 MG/DL (0.70-1.30); FREE T4 0.97 NG/DL (0.76-1.46); GLOMERULAR FILTRATION RATE > 60.0 (>42); GLUCOSE, FASTING 121 MG/DL (70-100); HDL CHOLESTEROL 42 MG/DL (>40); LDL CHOLESTEROL 17 MG/DL (<100); NON-HDL-C 76 MG/DL; PHENOBARBITAL LEVEL 6.3 UG/ML (15.0-40.0); PHENYTOIN (DILANTIN) 4.5 UG/ML (10.0-20.0); POTASSIUM SERUM 4.3 MEQ/L (3.5-5.1); SODIUM LEVEL 141 MEQ/L (136-145); TRIGLYCERIDES LEVEL 297 MG/DL (<150)
[2020-01-05 16:19] LABS: HEMOGLOBIN A1c 6.1 %
== END ==
LOC: M PLALAB 11:46
PROVIDERS: ATTEND Nurse Practitioner Family
DX: G40.909 Epilepsy, unspecified, not intractable, without status epilepticus (principal); E11.9 Type 2 diabetes mellitus without complications; I10 Essential (primary) hypertension; E78.5 Hyperlipidemia, unspecified
CPT/HCPCS: 36415; 80053; 80061; 80184; 80185; 83036; 84439; 84443; 85025; G0463

== ENCOUNTER → 2020-01-15 | Outpatient (REF) | payer MEDICARE, OTHER ==
[2020-01-15 18:05] LABS: MALB URINE SIEMENS 70.2 MG/L; MAU/CREAT RATIO 34.4 MCG/MG (0.0-30.0)
== END ==
LOC: M SFHCPLAZ 16:53
PROVIDERS: ATTEND Nurse Practitioner Family
DX: G40.909 Epilepsy, unspecified, not intractable, without status epilepticus (principal); E11.9 Type 2 diabetes mellitus without complications; I10 Essential (primary) hypertension; E78.5 Hyperlipidemia, unspecified

== ENCOUNTER → 2020-04-20 | Outpatient (REF) | payer MEDICARE, OTHER ==
[2020-04-20 18:34] LABS: HEMATOCRIT 39.1 % (42.0-52.0); HEMOGLOBIN 12.2 g/dl (13.5-17.5); MEAN CORPUSCULAR HEMOGLOBIN 29.4 pg (27.0-33.0); MEAN CORPUSCULAR HGB CONC 31.2 g/dl (32.0-36.5); MEAN CORPUSCULAR VOLUME 94.2 fl (80.0-96.0); PLATELET COUNT, AUTOMATED 108 10^3/uL (150-450); RED BLOOD COUNT 4.15 10^6/uL (4.30-6.10); WHITE BLOOD COUNT 4.6 10^3/uL (4.0-10.0)
[2020-04-20 18:50] LABS: HEMOGLOBIN A1c 5.9 %
[2020-04-20 18:55] LABS: ALBUMIN 3.4 GM/DL (3.2-5.2); ALT/SGPT 44 U/L (12-78); BILIRUBIN,TOTAL 0.3 MG/DL (0.2-1.0); BLOOD UREA NITROGEN 14 MG/DL (7-18); CALCIUM LEVEL 8.5 MG/DL (8.8-10.2); CARBON DIOXIDE LEVEL 33 MEQ/L (21-32); CHLORIDE LEVEL 103 MEQ/L (98-107); CREATININE FOR GFR 0.87 MG/DL (0.70-1.30); FERRITIN 21 NG/ML (26-388); GLOMERULAR FILTRATION RATE > 60.0 (>42); GLUCOSE, FASTING 156 MG/DL (70-100); IRON (FE) 44 UG/DL (65-175); PERCENT SATURATION 13.2 % (19.7-50.0); POTASSIUM SERUM 4.3 MEQ/L (3.5-5.1); SODIUM LEVEL 137 MEQ/L (136-145); TOTAL IRON BINDING CAPACITY 334 UG/DL (250-450); TOTAL PROTEIN 6.8 GM/DL (6.4-8.2)
== END ==
LOC: M PLALAB 15:28
PROVIDERS: ATTEND Family Medicine
DX: D64.9 Anemia, unspecified (principal); I10 Essential (primary) hypertension; E78.2 Mixed hyperlipidemia; E11.41 Type 2 diabetes mellitus with diabetic mononeuropathy

== ENCOUNTER → 2020-10-11 | Outpatient (CLI) | payer MEDICARE, OTHER ==
[2020-10-11 15:47] LABS: HEMATOCRIT 39.9 % (42.0-52.0); HEMOGLOBIN 12.7 g/dl (13.5-17.5); MEAN CORPUSCULAR HEMOGLOBIN 31.1 pg (27.0-33.0); MEAN CORPUSCULAR HGB CONC 31.8 g/dl (32.0-36.5); MEAN CORPUSCULAR VOLUME 97.6 fl (80.0-96.0); PLATELET COUNT, AUTOMATED 103 10^3/uL (150-450); RED BLOOD COUNT 4.09 10^6/uL (4.30-6.10); WHITE BLOOD COUNT 4.6 10^3/uL (4.0-10.0)
[2020-10-11 16:11] LABS: ALBUMIN 3.5 GM/DL (3.2-5.2); ALT/SGPT 44 U/L (12-78); BILIRUBIN,TOTAL 0.3 MG/DL (0.2-1.0); BLOOD UREA NITROGEN 14 MG/DL (7-18); CALCIUM LEVEL 8.5 MG/DL (8.8-10.2); CARBON DIOXIDE LEVEL 33 MEQ/L (21-32); CHLORIDE LEVEL 105 MEQ/L (98-107); CREATININE FOR GFR 0.95 MG/DL (0.70-1.30); FERRITIN 22 NG/ML (26-388); GLOMERULAR FILTRATION RATE > 60.0 (>42); GLUCOSE, FASTING 152 MG/DL (70-100); PHENOBARBITAL LEVEL 6.5 UG/ML (15.0-40.0); POTASSIUM SERUM 4.5 MEQ/L (3.5-5.1); SODIUM LEVEL 142 MEQ/L (136-145)
== END ==
LOC: M PLALAB 12:27
PROVIDERS: ATTEND Family Medicine
DX: E11.41 Type 2 diabetes mellitus with diabetic mononeuropathy (principal); I10 Essential (primary) hypertension; D50.8 Other iron deficiency anemias; N39.43 Post-void dribbling; Z51.81 Encounter for therapeutic drug level monitoring; Z79.899 Other long term (current) drug therapy
CPT/HCPCS: 36415; 80053; 80184; 82728; 83036; 85027; G0103

== ENCOUNTER → 2021-02-09 | Outpatient (CLI) | payer MEDICARE, BC, OTHER ==
[2021-02-09 13:55] LABS: HEMATOCRIT 41.4 % (42.0-52.0); HEMOGLOBIN 13.2 g/dl (13.5-17.5); MEAN CORPUSCULAR HEMOGLOBIN 30.8 pg (27.0-33.0); MEAN CORPUSCULAR HGB CONC 31.9 g/dl (32.0-36.5); MEAN CORPUSCULAR VOLUME 96.5 fl (80.0-96.0); PLATELET COUNT, AUTOMATED 107 10^3/uL (150-450); RED BLOOD COUNT 4.29 10^6/uL (4.30-6.10); WHITE BLOOD COUNT 5.5 10^3/uL (4.0-10.0)
[2021-02-09 14:22] LABS: ALBUMIN 3.3 GM/DL (3.2-5.2); ALT/SGPT 36 U/L (12-78); BILIRUBIN,TOTAL 0.3 MG/DL (0.2-1.0); BLOOD UREA NITROGEN 24 MG/DL (7-18); CALCIUM LEVEL 8.9 MG/DL (8.8-10.2); CARBON DIOXIDE LEVEL 35 MEQ/L (21-32); CHLORIDE LEVEL 105 MEQ/L (98-107); CHOLESTEROL LEVEL 150 MG/DL (<200); CHOLESTEROL RISK RATIO 3.333 (<5); CREATININE FOR GFR 0.98 MG/DL (0.70-1.30); FERRITIN 26 NG/ML (26-388); GLOMERULAR FILTRATION RATE > 60.0 (>42); GLUCOSE, FASTING 154 MG/DL (70-100); HDL CHOLESTEROL 45 MG/DL (>40); LDL CHOLESTEROL 39 MG/DL (<100); NON-HDL-C 105 MG/DL; POTASSIUM SERUM 4.5 MEQ/L (3.5-5.1); SODIUM LEVEL 140 MEQ/L (136-145); TOTAL PROTEIN 7.1 GM/DL (6.4-8.2); TRIGLYCERIDES LEVEL 330 MG/DL (<150)
[2021-02-09 14:28] LABS: MALB URINE SIEMENS 54.9 MG/L; MAU/CREAT RATIO 39.2 MCG/MG (0.0-30.0)
== END ==
LOC: M PLALAB 08:47
PROVIDERS: ATTEND Family Medicine
DX: E11.41 Type 2 diabetes mellitus with diabetic mononeuropathy (principal); E78.2 Mixed hyperlipidemia; I10 Essential (primary) hypertension; D50.8 Other iron deficiency anemias

== ENCOUNTER → 2021-04-01 | Outpatient (CLI) | payer MEDICARE, BC, OTHER ==
[~2021-04-01] MED LIST changes: +GABA-282 PO; +LOSA50TA28 PO; -LOSA50TA88 PO
== END ==
LOC: M LABSMTC 09:37
PROVIDERS: ATTEND Anesthesiology
DX: Z01.818 Encounter for other preprocedural examination (principal); Z11.52 Encounter for screening for COVID-19

== ENCOUNTER 2021-04-06 06:39 | Day surgery (SDC) | payer MEDICARE, BC, OTHER ==
[~2021-04-06] VITALS: Ht 172.7 cm; Wt 137.3 kg
[2021-04-06] MEDS: NS 1,000 ML IV ONE (06:00)
[~2021-04-06 06:39] MED LIST changes: -LOSA50TA28 PO; +LOSA50TA88 PO
--- NOTE | 2021-04-06 07:57 | ROOR ---
Patient Name: Enrique Thapa Procedure Date: 04/06/2021 7:32 AM Date of : 1950 Age: 70 Room: [facility] Gender: Male Note Status: Finalized Procedure: Colonoscopy Indications: Iron deficiency anemia Providers: DO Maggie Hartman MD: Kelli Colunga MD Requesting Provider: Medicines: Propofol per Anesthesia Complications: No immediate complications. Procedure: Pre-Anesthesia Assessment: - Prior to the procedure, a History and Physical was performed, and patient medications and allergies were reviewed. The patient is competent. The risks and benefits of the procedure and the sedation options and risks were discussed with the patient. All questions were answered and informed consent was obtained. Patient identification and proposed procedure were verified by the physician, the nurse, the devulcanizer operator and the hvac operations technician in the endoscopy suite. Mental Status Examination: alert and oriented. Airway Examination: normal oropharyngeal airway and neck mobility. Respiratory Examination: clear to auscultation. CV Examination: normal. Prophylactic Antibiotics: The patient does not require prophylactic antibiotics. Prior Anticoagulants: The patient has taken no previous anticoagulant or antiplatelet agents. ASA Grade Assessment: III - A patient with severe systemic disease. After reviewing the risks and benefits, the patient was deemed in satisfactory condition to undergo the procedure. The anesthesia plan was to use monitored anesthesia care (MAC). Immediately prior to administration of medications, the patient was re-assessed for adequacy to receive sedatives. The heart rate, respiratory rate, oxygen saturations, blood pressure, adequacy of pulmonary ventilation, and response to care were monitored throughout the procedure. The physical status of the patient was re-assessed after the procedure. The Colonoscope was introduced through the anus and advanced to the cecum, identified by appendiceal orifice and ileocecal valve. The colonoscopy was performed without difficulty. The patient tolerated the procedure well. Findings: Non-bleeding internal hemorrhoids were found during retroflexion. The hemorrhoids were Grade II (internal hemorrhoids that prolapse but reduce spontaneously). A few small-mouthed diverticula were found in the sigmoid colon. A less than 5 mm polyp was found in the sigmoid colon. The polyp was hyperplastic. The polyp was removed with a jumbo cold forceps. Resection and retrieval were complete. Estimated blood loss was minimal. A few semi-pedunculated polyps were found in the sigmoid colon. The polyps were 2 to 5 mm in size. These polyps were removed with a hot snare. Resection and retrieval were complete. Estimated blood loss was minimal. Impression: - Non-bleeding internal hemorrhoids. - Diverticulosis in the sigmoid colon. - One less than 5 mm polyp in the sigmoid colon, removed with a jumbo cold forceps. Resected and retrieved. - A few 2 to 5 mm polyps in the sigmoid colon, removed with a hot snare. Resected and retrieved. Recommendation: - Patient has a contact number available for emergencies. The signs and symptoms of potential delayed complications were discussed with the patient. Return to normal activities tomorrow. Written discharge instructions were provided to the patient. - Repeat colonoscopy in 3 - 5 years for surveillance based on pathology results. - Return to my office at appointment to be scheduled. Procedure Code(s): --- Professional --- 13831, Colonoscopy, flexible; with removal of tumor(s), polyp(s), or other lesion(s) by snare technique 74055, 59, Colonoscopy, flexible; with biopsy, single or multiple Diagnosis Code(s): --- Professional --- K64.1, Second degree hemorrhoids K63.5, Polyp of colon D50.9, Iron deficiency anemia, unspecified K57.30, Diverticulosis of large intestine without perforation or abscess without bleeding CPT copyright 2019 [employer]. All rights reserved. The codes documented in this report are preliminary and upon death surveys coder review may be revised to meet current compliance requirements. Walt Mccoy DO 04/06/2021 7:56:48 AM Electronically signed by Walt Mccoy DO Number of Addenda: 0 Note Initiated On: 04/06/2021 7:32 AM Estimated Blood Loss: Estimated blood loss was minimal.
[2021-04-06] MEDS ORDERED: propofoL 200 MG/20 ML VIAL As Ordered ONE (08:06)
[2021-04-06] MEDS ORDERED: LIDOCAINE 2% 100MG/5ML SDV (FOR ANES.) As Ordered ONE (08:06)
[2021-04-06 08:20] VITALS: BP 145/81
== END 2021-04-06 08:20 | disposition home or self-care (01) ==
LOC: M OPP 06:39
PROVIDERS: ATTEND Surgery
DX: D50.9 Iron deficiency anemia, unspecified (principal); K57.30 Diverticulosis of large intestine without perforation or abscess without bleeding; K64.1 Second degree hemorrhoids; K63.5 Polyp of colon; Z86.010 Personal history of colon polyps; Z80.0 Family history of malignant neoplasm of digestive organs; Z79.84 Long term (current) use of oral hypoglycemic drugs; Z79.899 Other long term (current) drug therapy; F17.210 Nicotine dependence, cigarettes, uncomplicated

== ENCOUNTER → 2021-05-18 | Outpatient (CLI) | payer MEDICARE, BC, OTHER ==
[~2021-05-18] MED LIST changes: +LOSA50TA28 PO; -LOSA50TA88 PO
[2021-05-18 17:10] LABS: HEMATOCRIT 40.6 % (42.0-52.0); HEMOGLOBIN 12.9 g/dl (13.5-17.5); MEAN CORPUSCULAR HEMOGLOBIN 30.6 pg (27.0-33.0); MEAN CORPUSCULAR HGB CONC 31.8 g/dl (32.0-36.5); MEAN CORPUSCULAR VOLUME 96.2 fl (80.0-96.0); PLATELET COUNT, AUTOMATED 106 10^3/uL (150-450); RED BLOOD COUNT 4.22 10^6/uL (4.30-6.10); WHITE BLOOD COUNT 4.9 10^3/uL (4.0-10.0)
[2021-05-18 17:35] LABS: ALBUMIN 3.5 GM/DL (3.2-5.2); ALT/SGPT 43 U/L (12-78); BILIRUBIN,TOTAL 0.3 MG/DL (0.2-1.0); BLOOD UREA NITROGEN 19 MG/DL (7-18); CALCIUM LEVEL 8.7 MG/DL (8.8-10.2); CARBON DIOXIDE LEVEL 33 MEQ/L (21-32); CHLORIDE LEVEL 106 MEQ/L (98-107); CREATININE FOR GFR 0.97 MG/DL (0.70-1.30); FERRITIN 33 NG/ML (26-388); GLOMERULAR FILTRATION RATE > 60.0 (>42); GLUCOSE, FASTING 153 MG/DL (70-100); POTASSIUM SERUM 4.3 MEQ/L (3.5-5.1); SODIUM LEVEL 142 MEQ/L (136-145); TOTAL PROTEIN 7.1 GM/DL (6.4-8.2)
[2021-05-18 17:43] LABS: MALB URINE SIEMENS 50.3 MG/L; MAU/CREAT RATIO 33.9 MCG/MG (0.0-30.0)
[2021-05-18 18:32] LABS: HEMOGLOBIN A1c 6.2 %
== END ==
LOC: M PLALAB 14:53
PROVIDERS: ATTEND Family Medicine
DX: E11.41 Type 2 diabetes mellitus with diabetic mononeuropathy (principal); D50.8 Other iron deficiency anemias; I10 Essential (primary) hypertension; Z51.81 Encounter for therapeutic drug level monitoring; Z79.899 Other long term (current) drug therapy

== ENCOUNTER → 2021-05-26 | Outpatient (CLI) | payer MEDICARE, BC, OTHER ==
[2021-05-26 15:31] LABS: BASO % 0.4 % (0.0-1.0); HEMATOCRIT 41.3 % (42.0-52.0); HEMOGLOBIN 13.2 g/dl (13.5-17.5); LYMPH # 0.9 10^3/uL (1.5-5.0); LYMPH % 19.2 % (24.0-44.0); MEAN CORPUSCULAR HEMOGLOBIN 30.7 pg (27.0-33.0); MONO # 0.5 10^3/uL (0.0-0.8); MONO % 11.1 % (2.0-8.0); NEUTROPHILS # 3.1 10^3/uL (1.5-8.5); NEUTROPHILS % 68.6 % (36.0-66.0); PLATELET COUNT, AUTOMATED 103 10^3/uL (150-450); WHITE BLOOD COUNT 4.6 10^3/uL (4.0-10.0)
[2021-05-26 15:59] LABS: PERCENT SATURATION 25.2 % (19.7-50.0)
== END ==
LOC: M PLALAB 12:33
PROVIDERS: ATTEND Family Medicine
DX: D64.9 Anemia, unspecified (principal)

== ENCOUNTER → 2021-06-30 | Outpatient (CLI) | payer MEDICARE, BC, OTHER ==
[2021-06-30 16:37] LABS: HEMATOCRIT 38.8 % (42.0-52.0); HEMOGLOBIN 12.3 g/dl (13.5-17.5); MEAN CORPUSCULAR HEMOGLOBIN 30.4 pg (27.0-33.0); MEAN CORPUSCULAR HGB CONC 31.7 g/dl (32.0-36.5); PLATELET COUNT, AUTOMATED 106 10^3/uL (150-450); RED BLOOD COUNT 4.04 10^6/uL (4.30-6.10)
[2021-06-30 17:07] LABS: ALBUMIN 3.3 GM/DL (3.2-5.2); FREE T4 1.26 NG/DL (0.76-1.46); LDH LACTATE DEHYDROGENASE 189 U/L (87-241); TOTAL PROTEIN 6.8 GM/DL (6.4-8.2)
[2021-06-30 17:11] LABS: HEPATITIS B SURFACE ANTIBODY NEGATIVE (POSITIVE)
[2021-06-30 17:51] LABS: HEPATITIS C VIRUS ABY INDEX 0.2 INDEX (<0.8); HIV 1&2 SCREEN CENTAUR NEGATIVE (NEGATIVE)
[2021-07-01 13:01] LABS: ALBUMIN 3.56 GM/DL (3.29-5.55); ALBUMIN % 52.3 % (55.8-66.1); ALPHA-1-GLOBULIN % 5.8 % (2.9-4.9); ALPHA-1-GLOBULINS 0.39 GM/DL (0.17-0.41); ALPHA-2-GLOBULINS % 13.3 % (7.1-11.8); BETA-1-GLOBULINS 0.39 GM/DL (0.28-0.60); BETA-1-GLOBULINS % 5.8 % (4.7-7.2); BETA-2-GLOBULINS 0.44 GM/DL (0.19-0.55); BETA-2-GLOBULINS % 6.4 % (3.2-6.5); GAMMA GLOBULINS 1.12 GM/DL (0.65-1.58)
[2021-07-01 13:02] LABS: GAMMA GLOBULIN % 16.4 % (11.1-18.8)
== END ==
LOC: M PLALAB 13:37
PROVIDERS: ATTEND Internal Medicine Hematology
DX: D69.6 Thrombocytopenia, unspecified (principal); Z79.899 Other long term (current) drug therapy

== ENCOUNTER → 2021-07-06 | Outpatient (CLI) | payer MEDICARE, BC, OTHER ==
[~2021-07-06] MED LIST changes: +GASTROGRAFIN SOLUTION 30ML (Q9963) As Ordered ONE; +ISOVUE-370 76% 100ML VIAL As Ordered ONE
== END ==
LOC: M RAD 10:40
PROVIDERS: ATTEND Internal Medicine Hematology
DX: D69.6 Thrombocytopenia, unspecified (principal)
CPT/HCPCS: 74160; Q9963; Q9967

== ENCOUNTER → 2022-03-01 | Outpatient (CLI) | payer MEDICARE, BC, OTHER ==
[~2022-03-01] MED LIST changes: -GASTROGRAFIN SOLUTION 30ML (Q9963) As Ordered ONE; -ISOVUE-370 76% 100ML VIAL As Ordered ONE
[2022-03-01 17:14] LABS: BASO % 0.5 % (0.0-1.0); HEMATOCRIT 40.3 % (42.0-52.0); HEMOGLOBIN 12.6 g/dl (13.5-17.5); LYMPH # 0.9 10^3/uL (1.5-5.0); LYMPH % 20.6 % (24.0-44.0); MEAN CORPUSCULAR HEMOGLOBIN 30.1 pg (27.0-33.0); MEAN CORPUSCULAR HGB CONC 31.3 g/dl (32.0-36.5); MEAN CORPUSCULAR VOLUME 96.2 fl (80.0-96.0); MONO # 0.5 10^3/uL (0.0-0.8); MONO % 12.1 % (2.0-8.0); NEUTROPHILS # 2.8 10^3/uL (1.5-8.5); NEUTROPHILS % 66.6 % (36.0-66.0); PLATELET COUNT, AUTOMATED 109 10^3/uL (150-450); RED BLOOD COUNT 4.19 10^6/uL (4.30-6.10); WHITE BLOOD COUNT 4.2 10^3/uL (4.0-10.0)
[2022-03-01 18:01] LABS: ALBUMIN 3.6 G/DL (3.2-5.2); ALT/SGPT 47 U/L (7.0-40); BILIRUBIN,TOTAL 0.3 MG/DL (0.3-1.2); BLOOD UREA NITROGEN 17 MG/DL (9-23); CALCIUM LEVEL 9.2 MG/DL (8.3-10.6); CARBON DIOXIDE LEVEL 31 MMOL/L (20-31); CHLORIDE LEVEL 104 MMOL/L (98-107); CHOLESTEROL LEVEL 119 MG/DL (<200); CHOLESTEROL RISK RATIO 3.19 (<5); CREATININE FOR GFR 0.87 MG/DL (0.70-1.30); GLOMERULAR FILTRATION RATE > 60.0 (>42); GLUCOSE, FASTING 123 MG/DL (74-106); HDL CHOLESTEROL 37.3 MG/DL (>40); LDL CHOLESTEROL 33.9 MG/DL (<100); NON-HDL-C 82 MG/DL; POTASSIUM SERUM 4.8 MMOL/L (3.5-5.1); SODIUM LEVEL 142 MMOL/L (136-145); TOTAL PROTEIN 6.7 G/DL (5.7-8.2); TRIGLYCERIDES LEVEL 239 MG/DL (<150)
[2022-03-01 18:24] LABS: HEMOGLOBIN A1c 5.8 % (4.0-6.0)
== END ==
LOC: M PLALAB 14:48
PROVIDERS: ATTEND Physician Assistant
DX: E11.41 Type 2 diabetes mellitus with diabetic mononeuropathy (principal); I10 Essential (primary) hypertension; Z12.5 Encounter for screening for malignant neoplasm of prostate
CPT/HCPCS: 36415; 80053; 80061; 83036; 85025; G0103

== ENCOUNTER → 2022-12-07 | Outpatient (CLI) | payer MEDICARE, BC, OTHER ==
[2022-12-07 16:02] LABS: BASO % 0.6 % (0.0-1.0); HEMATOCRIT 40.1 % (42.0-52.0); HEMOGLOBIN 12.9 g/dl (13.5-17.5); LYMPH # 0.9 10^3/uL (1.5-5.0); LYMPH % 27.4 % (24.0-44.0); MEAN CORPUSCULAR HEMOGLOBIN 30.7 pg (27.0-33.0); MEAN CORPUSCULAR HGB CONC 32.2 g/dl (32.0-36.5); MEAN CORPUSCULAR VOLUME 95.5 fl (80.0-96.0); MONO # 0.4 10^3/uL (0.0-0.8); MONO % 11.9 % (2.0-8.0); NEUTROPHILS % 59.8 % (36.0-66.0); PLATELET COUNT, AUTOMATED 103 10^3/uL (150-450); WHITE BLOOD COUNT 3.3 10^3/uL (4.0-10.0)
[2022-12-07 16:29] LABS: HEMOGLOBIN A1c 5.6 % (4.0-6.0)
[2022-12-07 16:32] LABS: IRON (FE) 86 UG/DL (65-175)
[2022-12-07 16:33] LABS: ALBUMIN 3.4 G/DL (3.2-5.2); ALKALINE PHOSPHATASE 111 U/L (46-116); ALT/SGPT 22 U/L (7.0-40); AST/SGOT 10 U/L (<34); BILIRUBIN,TOTAL 0.4 MG/DL (0.3-1.2); BLOOD UREA NITROGEN 13 MG/DL (9-23); CALCIUM LEVEL 8.4 MG/DL (8.3-10.6); CARBON DIOXIDE LEVEL 31 MMOL/L (20-31); CHLORIDE LEVEL 105 MMOL/L (98-107); CHOLESTEROL LEVEL 110 MG/DL (<200); CHOLESTEROL RISK RATIO 2.87 (<5); CPK CREATINE PHOSPHOKINASE 65 U/L (46-171); CREATININE FOR GFR 0.81 MG/DL (0.70-1.30); GLOMERULAR FILTRATION RATE > 60.0 (>42); GLUCOSE, FASTING 112 MG/DL (74-106); HDL CHOLESTEROL 38.3 MG/DL (>40); LDL CHOLESTEROL 27.7 MG/DL (<100); NON-HDL-C 71.7 MG/DL; POTASSIUM SERUM 4.4 MMOL/L (3.5-5.1); SODIUM LEVEL 141 MMOL/L (136-145); TOTAL PROTEIN 6.6 G/DL (5.7-8.2); TRIGLYCERIDES LEVEL 220 MG/DL (<150)
[2022-12-07 16:34] LABS: FREE T4 0.91 NG/DL (0.89-1.76); THYROID STIMULATING HORMONE 2.124 uIU/ML (0.55-4.78)
[2022-12-07 16:35] LABS: FERRITIN 38.3 NG/ML (10.5-307.3)
== END ==
LOC: M PLALAB 12:37
PROVIDERS: ATTEND Physician Assistant Medical
DX: D50.8 Other iron deficiency anemias (principal); E07.9 Disorder of thyroid, unspecified; E78.00 Pure hypercholesterolemia, unspecified; Z12.5 Encounter for screening for malignant neoplasm of prostate; E11.41 Type 2 diabetes mellitus with diabetic mononeuropathy; E66.01 Morbid (severe) obesity due to excess calories; G40.409 Other generalized epilepsy and epileptic syndromes, not intractable, without status epilepticus
CPT/HCPCS: 36415; 80053; 80061; 82550; 82728; 83036; 83540; 84439; 84443; 85025; 86677; G0103

== ENCOUNTER → 2023-02-27 | Outpatient (CLI) | payer OTHER, BC, MEDICARE ==
[~2023-02-27] MED LIST changes: +CELE0.09 PO; -CELE1CAP9 PO
[2023-02-27 17:39] LABS: BASO % 0.5 % (0.0-1.0); HEMATOCRIT 40.2 % (42.0-52.0); HEMOGLOBIN 12.8 g/dl (13.5-17.5); LYMPH # 0.8 10^3/uL (1.5-5.0); LYMPH % 18.8 % (24.0-44.0); MEAN CORPUSCULAR HEMOGLOBIN 30.9 pg (27.0-33.0); MEAN CORPUSCULAR HGB CONC 31.8 g/dl (32.0-36.5); MEAN CORPUSCULAR VOLUME 97.1 fl (80.0-96.0); MONO # 0.5 10^3/uL (0.0-0.8); MONO % 11.9 % (2.0-8.0); NEUTROPHILS # 2.9 10^3/uL (1.5-8.5); NEUTROPHILS % 68.6 % (36.0-66.0); PLATELET COUNT, AUTOMATED 108 10^3/uL (150-450); RED BLOOD COUNT 4.14 10^6/uL (4.30-6.10); WHITE BLOOD COUNT 4.2 10^3/uL (4.0-10.0)
[2023-02-27 18:07] LABS: ALBUMIN 3.4 G/DL (3.2-5.2); ALKALINE PHOSPHATASE 122 U/L (46-116); ALT/SGPT 36 U/L (7.0-40); AST/SGOT 19 U/L (<34); BILIRUBIN,TOTAL 0.3 MG/DL (0.3-1.2); BLOOD UREA NITROGEN 14 MG/DL (9-23); CALCIUM LEVEL 8.5 MG/DL (8.3-10.6); CARBON DIOXIDE LEVEL 33 MMOL/L (20-31); CHLORIDE LEVEL 107 MMOL/L (98-107); CREATININE FOR GFR 0.84 MG/DL (0.70-1.30); GLOMERULAR FILTRATION RATE > 60.0 (>42); GLUCOSE, FASTING 111 MG/DL (74-106); POTASSIUM SERUM 4.5 MMOL/L (3.5-5.1); SODIUM LEVEL 145 MMOL/L (136-145); TOTAL PROTEIN 6.8 G/DL (5.7-8.2)
[2023-02-27 18:09] LABS: FERRITIN 30.1 NG/ML (10.5-307.3); VITAMIN B12 LEVEL 307 PG/ML (211-911)
== END ==
LOC: M PLALAB 16:37
PROVIDERS: ATTEND Physician Assistant
DX: E11.41 Type 2 diabetes mellitus with diabetic mononeuropathy (principal); I10 Essential (primary) hypertension; D50.8 Other iron deficiency anemias; D69.6 Thrombocytopenia, unspecified; R60.0 Localized edema; N39.43 Post-void dribbling
CPT/HCPCS: 36415; 80053; 82607; 82728; 83880; 85025; G0103

== ENCOUNTER → 2023-09-14 | Outpatient (CLI) | payer MEDICARE, BC ==
[2023-09-14 17:15] LABS: BASO % 0.6 % (0.0-1.0); HEMATOCRIT 40.9 % (42.0-52.0); HEMOGLOBIN 13.1 g/dl (13.5-17.5); LYMPH # 0.8 10^3/uL (1.5-5.0); LYMPH % 21.3 % (24.0-44.0); MEAN CORPUSCULAR HEMOGLOBIN 31.6 pg (27.0-33.0); MEAN CORPUSCULAR VOLUME 98.8 fl (80.0-96.0); MONO # 0.4 10^3/uL (0.0-0.8); MONO % 12.2 % (2.0-8.0); NEUTROPHILS # 2.3 10^3/uL (1.5-8.5); NEUTROPHILS % 65.6 % (36.0-66.0); PLATELET COUNT, AUTOMATED 113 10^3/uL (150-450); RED BLOOD COUNT 4.14 10^6/uL (4.30-6.10); WHITE BLOOD COUNT 3.5 10^3/uL (4.0-10.0)
[2023-09-14 17:32] LABS: CREATININE, URINE 172.4 MG/DL; MAU/CREAT RATIO 33.6 MCG/MG (0.0-30.0)
[2023-09-14 17:33] LABS: LIPASE 28 U/L (12-53)
[2023-09-14 17:34] LABS: IRON (FE) 109 UG/DL (65-175); TOTAL IRON BINDING CAPACITY 341 UG/DL (250-425)
[2023-09-14 17:35] LABS: ALBUMIN 3.4 G/DL (3.2-5.2); ALKALINE PHOSPHATASE 115 U/L (46-116); ALT/SGPT 43 U/L (7.0-40); AST/SGOT 15 U/L (<34); BILIRUBIN,TOTAL 0.3 MG/DL (0.3-1.2); BLOOD UREA NITROGEN 14 MG/DL (9-23); CALCIUM LEVEL 8.6 MG/DL (8.3-10.6); CARBON DIOXIDE LEVEL 33 MMOL/L (20-31); CHLORIDE LEVEL 105 MMOL/L (98-107); CHOLESTEROL LEVEL 146 MG/DL (<200); CREATININE FOR GFR 0.84 MG/DL (0.70-1.30); GLOMERULAR FILTRATION RATE > 60.0 (>42); GLUCOSE, FASTING 134 MG/DL (74-106); HDL CHOLESTEROL 41.7 MG/DL (>40); LDL CHOLESTEROL 43.1 MG/DL (<100); NON-HDL-C 104.3 MG/DL; POTASSIUM SERUM 4.5 MMOL/L (3.5-5.1); SODIUM LEVEL 141 MMOL/L (136-145); TOTAL PROTEIN 6.7 G/DL (5.7-8.2); TRIGLYCERIDES LEVEL 306 MG/DL (<150)
[2023-09-14 17:36] LABS: FERRITIN 35.7 NG/ML (10.5-307.3); PHENOBARBITAL LEVEL 5.2 UG/ML (15.0-40.0); PHENYTOIN (DILANTIN) 2.7 UG/ML (10.0-20.0)
[2023-09-14 17:37] LABS: VITAMIN B12 LEVEL 308 PG/ML (211-911)
[2023-09-14 17:40] LABS: HEMOGLOBIN A1c 5.7 % (4.0-6.0)
== END ==
LOC: M PLALAB 14:34
PROVIDERS: ATTEND Physician Assistant
DX: E11.41 Type 2 diabetes mellitus with diabetic mononeuropathy (principal); G40.909 Epilepsy, unspecified, not intractable, without status epilepticus; D50.8 Other iron deficiency anemias; D69.6 Thrombocytopenia, unspecified; I10 Essential (primary) hypertension; E78.2 Mixed hyperlipidemia; R60.0 Localized edema; R10.84 Generalized abdominal pain; R06.09 Other forms of dyspnea

== ENCOUNTER → 2023-11-16 | Outpatient (CLI) | payer MEDICARE, BC ==
[2023-11-16 10:04] LABS: BASO % 0.4 % (0.0-1.0); HEMATOCRIT 38.6 % (42.0-52.0); HEMOGLOBIN 12.4 g/dl (13.5-17.5); LYMPH # 1.1 10^3/uL (1.5-5.0); LYMPH % 21.7 % (24.0-44.0); MEAN CORPUSCULAR HEMOGLOBIN 31.2 pg (27.0-33.0); MEAN CORPUSCULAR HGB CONC 32.1 g/dl (32.0-36.5); MEAN CORPUSCULAR VOLUME 97.2 fl (80.0-96.0); MONO # 0.6 10^3/uL (0.0-0.8); MONO % 12.3 % (2.0-8.0); NEUTROPHILS # 3.4 10^3/uL (1.5-8.5); NEUTROPHILS % 65.4 % (36.0-66.0); PLATELET COUNT, AUTOMATED 102 10^3/uL (150-450); RED BLOOD COUNT 3.97 10^6/uL (4.30-6.10); WHITE BLOOD COUNT 5.1 10^3/uL (4.0-10.0)
[2023-11-16 10:23] LABS: ALBUMIN 3.6 G/DL (3.2-5.2); ALKALINE PHOSPHATASE 118 U/L (46-116); ALT/SGPT 73 U/L (7.0-40); AST/SGOT 30 U/L (<34); BILIRUBIN,TOTAL 0.3 MG/DL (0.3-1.2); BLOOD UREA NITROGEN 30 MG/DL (9-23); CALCIUM LEVEL 8.7 MG/DL (8.3-10.6); CARBON DIOXIDE LEVEL 32 MMOL/L (20-31); CHLORIDE LEVEL 102 MMOL/L (98-107); CREATININE FOR GFR 1.19 MG/DL (0.70-1.30); GLOMERULAR FILTRATION RATE > 60.0 (>42); GLUCOSE, FASTING 152 MG/DL (74-106); POTASSIUM SERUM 4.9 MMOL/L (3.5-5.1); SODIUM LEVEL 137 MMOL/L (136-145)
== END ==
LOC: M PLALAB 08:49
PROVIDERS: ATTEND Physician Assistant
DX: E11.41 Type 2 diabetes mellitus with diabetic mononeuropathy (principal); D69.6 Thrombocytopenia, unspecified

== ENCOUNTER → 2024-01-17 | Outpatient (CLI) | payer MEDICARE, BC ==
[~2024-01-17] MED LIST changes: +GABA-1172 PO; -GABA-282 PO
[2024-01-17 13:39] LABS: BASO % 0.5 % (0.0-1.0); HEMATOCRIT 39.5 % (42.0-52.0); HEMOGLOBIN 12.4 g/dl (13.5-17.5); LYMPH % 22.9 % (24.0-44.0); MEAN CORPUSCULAR HEMOGLOBIN 31.2 pg (27.0-33.0); MEAN CORPUSCULAR HGB CONC 31.4 g/dl (32.0-36.5); MEAN CORPUSCULAR VOLUME 99.2 fl (80.0-96.0); MONO # 0.5 10^3/uL (0.0-0.8); NEUTROPHILS # 2.8 10^3/uL (1.5-8.5); NEUTROPHILS % 64.4 % (36.0-66.0); PLATELET COUNT, AUTOMATED 105 10^3/uL (150-450); RED BLOOD COUNT 3.98 10^6/uL (4.30-6.10); WHITE BLOOD COUNT 4.3 10^3/uL (4.0-10.0)
[2024-01-17 13:51] LABS: ERYTHROCYTE SEDIMENTATION RATE 33 mm/hr (0-20)
[2024-01-17 14:08] LABS: PSA SCREENING 3.07 NG/ML (< 4.00)
[2024-01-17 14:13] LABS: FERRITIN 61.3 NG/ML (10.5-307.3); TOTAL IRON BINDING CAPACITY 323 UG/DL (250-425)
[2024-01-17 14:15] LABS: C REACTIVE PROTEIN QUANTITATIV < 0.40 MG/DL (<1.0); RHEUMATOID FACTOR QUANT 5.4 IU/ML (<14)
[2024-01-17 14:16] LABS: ALBUMIN 3.6 G/DL (3.2-5.2); ALKALINE PHOSPHATASE 119 U/L (46-116); ALT/SGPT 50 U/L (7.0-40); AST/SGOT 23 U/L (<34); BILIRUBIN,TOTAL 0.4 MG/DL (0.3-1.2); BLOOD UREA NITROGEN 30 MG/DL (9-23); CALCIUM LEVEL 9.1 MG/DL (8.3-10.6); CARBON DIOXIDE LEVEL 33 MMOL/L (20-31); CHLORIDE LEVEL 105 MMOL/L (98-107); CREATININE FOR GFR 1.24 MG/DL (0.70-1.30); GLOMERULAR FILTRATION RATE > 60.0 (>42); GLUCOSE, FASTING 116 MG/DL (74-106); IRON (FE) 91 UG/DL (65-175); PERCENT SATURATION 28.2 % (19.7-50.0); POTASSIUM SERUM 4.3 MMOL/L (3.5-5.1); SODIUM LEVEL 142 MMOL/L (136-145); TOTAL PROTEIN 7.1 G/DL (5.7-8.2)
[2024-01-18 17:48] LABS: ANA PATTERN Nuclear, Homogeneous (NEGATIVE); ANA SCREEN, IFA POSITIVE (NEGATIVE)
[2024-01-19 00:32] LABS: CYCLIC CITRULLINATED PEPTIDE < 16 UNITS (<20)
[2024-01-26 17:37] LABS: ALPHA 2-MACROGLOBULINS,QN 257 mg/dL (106-279); ALT (SGPT) P5P 36 U/L (9-46); APOLIPOPROTEIN A-1 134 mg/dL (94-176); BILIRUBIN, TOTAL 0.4 mg/dL (0.2-1.2); FIBROSIS STAGE ADVANCED FIBROSIS (F0); GGT 91 U/L (3-70); HAPTOGLOBIN 137 mg/dL (43-212); NECROINFLAM ACT GRADE NO ACTIVITY (A0); NECROINFLAM ACT SCORE 0.27
== END ==
LOC: M PLALAB 10:23
PROVIDERS: ATTEND Physician Assistant
DX: R79.89 Other specified abnormal findings of blood chemistry (principal); I10 Essential (primary) hypertension; D50.8 Other iron deficiency anemias; M25.50 Pain in unspecified joint; N39.43 Post-void dribbling; Z12.5 Encounter for screening for malignant neoplasm of prostate

== ENCOUNTER → 2024-11-26 | Outpatient (REF) | payer MEDICARE, BC ==
[~2024-11-26] MED LIST changes: -BAYE325T12 PO; +BAYE325T2 PO; +PRAV10TA PO; -PRAV10TA4 PO
[2024-11-26 17:09] LABS: BASO # 0.0 10^3/uL (0.0-0.2); BASO % 0.2 % (0.0-1.0); EOS # 0.0 10^3/uL (0.0-0.5); EOS % 0.0 % (0.0-3.0); LYMPH # 0.7 10^3/uL (1.5-5.0); LYMPH % 17.3 % (24.0-44.0); MONO # 0.5 10^3/uL (0.0-0.8); MONO % 10.7 % (2.0-8.0); NEUTROPHILS # 3.0 10^3/uL (1.5-8.5); NEUTROPHILS % 71.8 % (36.0-66.0); PLATELET COUNT, AUTOMATED 100 10^3/uL (150-450)
[2024-11-26 17:13] LABS: ALT/SGPT 39.0 U/L (7.0-40); AST/SGOT 22.0 U/L (<34); CALCIUM LEVEL 8.4 MG/DL (8.3-10.6); CARBON DIOXIDE LEVEL 31.0 MMOL/L (20-31); CHLORIDE LEVEL 101.0 MMOL/L (98-107); CHOLESTEROL LEVEL 94.0 MG/DL (<200); CHOLESTEROL RISK RATIO 2.64 (<5); CREATININE FOR GFR 1.11 MG/DL (0.70-1.30); GLOMERULAR FILTRATION RATE 68.8 (>42); LDL CHOLESTEROL 19.3 MG/DL (<100); NON-HDL-C 58.5 MG/DL; POTASSIUM SERUM 4.2 MMOL/L (3.5-5.1); SODIUM LEVEL 142.0 MMOL/L (136-145); TRIGLYCERIDES LEVEL 196.0 MG/DL (<150)
[2024-11-26 17:15] LABS: FREE T4 1.06 NG/DL (0.89-1.76)
[2024-11-26 17:20] LABS: INR 1.07
[2024-11-26 17:26] LABS: ESTIMATED AVERAGE GLUCOSE 146.0 MG/DL (60-110)
== END ==
LOC: M SFHCPLAZ 13:45
DX: R76.8 Other specified abnormal immunological findings in serum (principal); K74.00 Hepatic fibrosis, unspecified; E11.41 Type 2 diabetes mellitus with diabetic mononeuropathy; I10 Essential (primary) hypertension; E78.2 Mixed hyperlipidemia

== ENCOUNTER → 2025-02-13 | Outpatient (CLI) | payer MEDICARE, BC ==
[2025-02-13 18:00] LABS: PLATELET COUNT, AUTOMATED 111 10^3/uL (150-450)
[2025-02-13 18:04] LABS: ALT/SGPT 29.0 U/L (7.0-40); AST/SGOT 19.0 U/L (<34); CALCIUM LEVEL 8.3 MG/DL (8.3-10.6); CARBON DIOXIDE LEVEL 32.0 MMOL/L (20-31); CHLORIDE LEVEL 103.0 MMOL/L (98-107); CHOLESTEROL LEVEL 87.0 MG/DL (<200); CHOLESTEROL RISK RATIO 2.62 (<5); CREATININE FOR GFR 1.08 MG/DL (0.70-1.30); FREE T4 1.07 NG/DL (0.89-1.76); GLOMERULAR FILTRATION RATE 71.1 (>42); LDL CHOLESTEROL 4.9 MG/DL (<100); NON-HDL-C 53.9 MG/DL; POTASSIUM SERUM 4.5 MMOL/L (3.5-5.1); SODIUM LEVEL 142.0 MMOL/L (136-145); TRIGLYCERIDES LEVEL 245.0 MG/DL (<150)
[2025-02-13 19:14] LABS: ESTIMATED AVERAGE GLUCOSE 117.0 MG/DL (60-110)
== END ==
LOC: M PLALAB 14:31
PROVIDERS: ATTEND Physician Assistant
DX: K74.00 Hepatic fibrosis, unspecified (principal); I10 Essential (primary) hypertension; E11.41 Type 2 diabetes mellitus with diabetic mononeuropathy; E78.2 Mixed hyperlipidemia